=== PATIENT | female | born 1960 | race Caucasian/White ===

== ENCOUNTER 2018-12-01 15:01 | Inpatient (IN) | payer OTHER ==
[~2018-12-01] VITALS: Ht 157.5 cm; Wt 56.3 kg
[2018-12-01 15:14] VITALS: Ht 157.5 cm; Wt 56.3 kg
--- NOTE | 2018-12-01 15:18 | NUR ---
TO ROOM 11 FOR EVAL.
--- NOTE | 2018-12-01 15:22 | NUR ---
PT BIB FAMILY C/C ABD PAIN HX OVARIAN CA STS ON CHEMO LAST SESSION 11/25 STS LUMP ON ABD IS LARGER THEN USUAL AWAITING FOR DR OVIDIO FLORENTINO
--- NOTE | 2018-12-01 16:40 | NUR ---
DR PEACE AT BEDSIDE TO EVAL
[2018-12-01 17:22] LABS: ALBUMIN 3.6 g/dL (3.4-5.0); ALKALINE PHOSPHATASE 93 U/L (46-116); ALT/SGPT 25 U/L (14-59); AST/SGOT 16 U/L (15-37); BILIRUBIN TOTAL 0.55 mg/dL (0.20-1.00); CALCIUM 9.3 mg/dL (8.5-10.1); CARBON DIOXIDE 26.9 mmol/L (21-32); CHLORIDE SERUM 101 mmol/L (98-107); CREATININE SERUM 0.7 mg/dL (0.6-1.0); GFR1 > 60 mL/min; GLUCOSE SERUM 109 mg/dL (74-106); LIPASE 58 IU/L (73-393); POTASSIUM SERUM 3.8 mmol/L (3.5-5.1); SODIUM SERUM 138 mmol/L (136-145); TOTAL PROTEIN, SERUM 6.9 g/dL (6.4-8.2)
[2018-12-01 17:23] LABS: RED CELL DISTRIBUTION WIDTH 18.4 % (11.5-14.5); microscopic required? YES; urine erythrocyte NEGATIVE (NEGATIVE)
[2018-12-01 17:24] LABS: PLATELET COUNT 40 x10^3mcL (130-400)
[2018-12-01 17:37] LABS: BAND NEUTROPHIL 0 % (0-10); BASOPHIL 0 % (0-2); MONOCYTE 7 % (0-7); SEGMENTED NEUTROPHILS 56 % (37-75)
[2018-12-01 17:38] LABS: rbc morphology (normal/abnorm) ABNORMAL (NORMAL)
--- NOTE | 2018-12-01 17:48 | NUR ---
TAKEN TO RADIOLOGY FOR CT
[2018-12-01] MEDS ORDERED: LYNPARZA150 MG PO (17:50)
[2018-12-01] MEDS ORDERED: NEUPOGEN300 MCG/01 IJ (17:50)
[2018-12-01] MEDS ORDERED: ZOFRAN ODT8 MG PO (17:50)
[2018-12-01] MEDS ORDERED: PROCHLORPERAZIN10 MG PO (17:51)
--- NOTE | 2018-12-01 18:11 | NUR ---
BACK FROM CT
--- NOTE | 2018-12-01 18:48 | NUR ---
DR PEACE AT BEDSIDE TO GO OVER PLAN OF CARE
--- NOTE | 2018-12-01 19:54 | NUR ---
REPORT GIVEN TO JEREMI ON MST FOR CONTINUATION OF CARE.
[2018-12-01 20:24] VITALS: BP 167/84
--- NOTE | 2018-12-01 20:28 | NUR ---
RECEIVED PT FROM ED VIA ANDRIY. ORIENTED PT TO ROOM AND SURROUNDINGS. IV NOTED TO LAC PATENT AND INTACT. ISNTRUCTED PT ON THE USE OF CALL LIGHT FOR ASSISTANCE. ENDORSED PT TO PRIMARY NURSE JEREMI
--- NOTE | 2018-12-01 20:30 | NUR ---
PT IS LAYING IN BED. PT IS A/OX4. BREATHING IS E/U ON RA. NO S/S OF ACUTE DISTRESS NOTED. LAC IV IN PLACE WITH NO S/S OF INFILTRATION NOTED. FAMILY AT BEDSIDE. NEUTROPENIC PRECATIONS IN PLACE. BED IN LOW POSITION. CALL LIGHT IN REACH. WILL CONT TO MONITOR
[2018-12-01 20:35] LABS: MAGNESIUM 1.6 mg/dL (1.8-2.4); PHOSPHOROUS 4.1 mg/dL (2.5-4.9)
[2018-12-01 20:47] LABS: T3 TOTAL 0.93 ng/mL
[2018-12-01 20:55] LABS: AMPHETAMINE QUAL UR NONE DETECTED (See below)
--- NOTE | 2018-12-01 21:17 | NUR ---
PT C/O ACHING ABD PAIN. PT MEDICATED WITH MORPHINE PER EMAR. WILL CONT TO MONITOR
[2018-12-01 21:28] LABS: FREE T4 1.22 ng/dL (0.76-1.46); FREE THYROXINE INDEX 3.1 ug/dL (1.4-4.5); T4(THYROXINE) 8.7 ug/dL (4.7-13.3)
--- NOTE | 2018-12-01 22:31 | NUR ---
PT C/O OF GASTRIC REFLUX. PT MEDICATED WITH PROTONIX PER EMAR
--- NOTE | 2018-12-01 22:56 | NUR ---
PT C/O FEELING NAUSEAS. PT MEDICATED WITH ZOFRAN PER EMAR
--- NOTE | 2018-12-01 23:23 | NUR ---
14 FR RIGHT NARE NGT PLACED. AIR AUSCULTATED OVER EPIGASTRIC REGION. AWAITING KUB RESULTS TO VERIFY PLACEMENT. PT NOTED TO BE VOMITING BLOOD-TINGED COLORED EMESIS. DR. ESTRELLA AT BEDSIDE AND AWARE.
--- NOTE | 2018-12-01 23:23 | NUR ---
14 FR RIGHT NARE NGT PLACED. AIR AUSCULTATED OVER EPIGASTRIC REGION. AWAITING KUB RESULTS TO VERIFY PLACEMENT. PT NOTED TO BE VOMITING BROWNISH/DARK RED COLORED EMESIS. DR. ESTRELLA AT BEDSIDE AND AWARE.
--- NOTE | 2018-12-01 23:36 | NUR ---
X-RAY TECH AT BEDSIDE FOR VERIFICATION OF NGT PLACEMENT
--- NOTE | 2018-12-02 01:25 | NUR ---
NGT PLACED TO LIS PER MD ORDER. BROWN COLORED DRAINAGE NOTED FROM NGT
--- NOTE | 2018-12-02 03:05 | NUR ---
PT AMBULATED TO THE RESTROOM WITH A STEADY GAIT. PT HAD A SMALL BROWN BM
[2018-12-02 06:07] VITALS: BP 147/78
--- NOTE | 2018-12-02 06:20 | NUR ---
PT IS SLEEPING, EASILY AROUSABLE. BREATHING IS E/U ON RA. NO S/S OF ACUTE DITRESS NOTED. NGT CONNECTED TO LIS WITH BROWN COLORED DRAINAGE NOTED. LAC IV IN PLACE WITH NO S/S OF INFILTRATION NOTED, INFUSING NS @ 100 ML/HR. BED IN LOW POSITION. CALL LIGHT IN REACH.
[2018-12-02 07:02] LABS: CALCIUM 8.7 mg/dL (8.5-10.1); CHLORIDE SERUM 102 mmol/L (98-107); CREATININE SERUM 0.5 mg/dL (0.6-1.0); GFR1 > 60 mL/min; GLUCOSE SERUM 98 mg/dL (74-106); MAGNESIUM 1.4 mg/dL (1.8-2.4); PHOSPHOROUS 3.8 mg/dL (2.5-4.9); POTASSIUM SERUM 3.1 mmol/L (3.5-5.1); SODIUM SERUM 139 mmol/L (136-145)
--- NOTE | 2018-12-02 07:15 | NUR ---
REPORT GIVEN TO DAWNA PERSAUD. ALL QUESTIONS/CONCERNS ADDRESSED AT THIS TIME. ENDORSING ALL CARE
[2018-12-02 07:30] LABS: RED CELL DISTRIBUTION WIDTH 18.1 % (11.5-14.5)
--- NOTE | 2018-12-02 07:30 | NUR ---
PATIENT RESTING IN BED, NO ACUTE DISTRESS NOTED. PATIENT STATES HER PAIN LEVEL IS 06/10 TO ABDOMEN, BUT IS TOLERABLE. EDUCATED PATIENT ON PAIN MANAGEMENT. BOWEL SOUNDS ARE ACTIVE X4, DENIES N/V AT THIS TIME. NS IV INFUSING TO LAC AT 100ML/HR, IV SITE CDI & PATENT, NO S/S OF INFILTRATION. CALL LIGHT WITHIN REACH, BED IN LOW POSITION. WILL CONTINUE TO MONITOR FOR CHANGES.
[2018-12-02 07:31] LABS: PLATELET COUNT 35 x10^3mcL (130-400)
[2018-12-02 08:36] VITALS: BP 135/67
--- NOTE | 2018-12-02 10:37 | NUR ---
DR. AKHTAR AT BEDSIDE, SPOKE WITH PATIENT REGARDING PALLATIVE TRANSVERSE COLOSTOMY. PATIENT APPEARED HESITANT ABOUT PROCEDURE AND WILL NEED TIME TO THINK ABOUT IT. WILL FOLLOW UP WITH PATIENT.
--- NOTE | 2018-12-02 10:44 | NUR ---
DR JIMENEZ AWARE PATIENT K 3.1, MAG 1.4. DR JIMENEZ WILL PLACE IN NEW ORDERS, WILL FOLLOW UP. DR. JIMENEZ AWARE PATIENT DID NOT RECEIVE MAG OX PO, PATIENT IS ON NGT LIS, DR TOM WILL UPDATE MEDICATION. WILL CONTINUE TO MONITOR PATIENT.
[2018-12-02 11:29] LABS: BAND NEUTROPHIL 3 % (0-10); BASOPHIL 0 % (0-2); MONOCYTE 6 % (0-7); PLATELET MORPHOLOGY PLATELETS DECREASED; SEGMENTED NEUTROPHILS 46 % (37-75); rbc morphology (normal/abnorm) ABNORMAL (NORMAL)
--- NOTE | 2018-12-02 12:45 | NUR ---
RECEIVED NURSING ORDERS TO REMOVE NGT. 14 FR NGT TO RIGHT NARE REMOVED. PATIENT TOLERATED NGT REMOVAL. NO OUTPUT NOTED. CALL LIGHT WITHIN REACH, BED IN LOW POSITION, WILL CONTINUE TO MONITOR.
[2018-12-02 16:53] VITALS: BP 132/78
--- NOTE | 2018-12-02 18:50 | NUR ---
PATIENT RESTING IN BED, NO ACUTE DISTRESS NOTED. PATIENT DENIES PAIN. NO ACUTE CHANGES THROUGH OUT SHIFT. IV TO LAC CDI, NO S/S OF INFILTRATION. CALL LIGHT WITHIN REACH, BED IN LOW POSITION, WILL ENDORSE REPORT TO NIGHT NURSE.
--- NOTE | 2018-12-02 19:40 | NUR ---
RECEIVED REPORT FROM DAY SHIFT RN. PT RESTING IN BED. AA&O X4. NO SOB ON ROOM AIR. NO C/O PAIN AT THIS TIME. IV TO LAC, INTACT. SAFETY MEASURES IN PLACE. BED IN LOWEST POSITION. SIDE RAILS UP X2. DEMONSTRATED HOW TO USE THE CALL LIGHT FOR ASSISTANCE. CALL LIGHT WITHIN REACH. FAMILY AT BEDSIDE.
[2018-12-02 22:00] VITALS: BP 135/80
--- NOTE | 2018-12-03 00:05 | NUR ---
PT RESTING WITH EYES CLOSED. NO RESPIRATORY DISTRESS. NO FACIAL GRIMACING. CALL LIGHT WITHN REACH. DAUGHTER AT BEDSIDE.
--- NOTE | 2018-12-03 06:27 | NUR ---
PT SLEPT AT LONG INTERVALS DURING SHIFT. NO SOB ON ROOM AIR. NO N/V. NO C/O PAIN. NO ACUTE DISTRESS NOTED. PT REMAINED NPO. SAFETY MEASURES MAINTAINED. CALL LIGHT WITHIN REACH. DAUGHTER AT BEDSIDE. WILL ENDORSE CONTINUITY OF CARE TO DAY SHIFT RN.
[2018-12-03 06:54] VITALS: BP 149/88
[2018-12-03 07:30] LABS: CALCIUM 8.7 mg/dL (8.5-10.1); CARBON DIOXIDE 27.3 mmol/L (21-32); CHLORIDE SERUM 100 mmol/L (98-107); CREATININE SERUM 0.5 mg/dL (0.6-1.0); GFR1 > 60 mL/min; GLUCOSE SERUM 113 mg/dL (74-106); MAGNESIUM 1.7 mg/dL (1.8-2.4); PHOSPHOROUS 3.3 mg/dL (2.5-4.9); POTASSIUM SERUM 3.9 mmol/L (3.5-5.1); SODIUM SERUM 136 mmol/L (136-145)
[2018-12-03 07:36] LABS: PLATELET COUNT 35 x10^3mcL (130-400); RED CELL DISTRIBUTION WIDTH 18.4 % (11.5-14.5)
--- NOTE | 2018-12-03 07:40 | NUR ---
PATIENT IS RESTING IN BED, NO ACUTE DISTRESS NOTED. DENIES SOB, ON ROOM AIR. PATIENT C/O ABDOMINAL DISCOMFORT, BUT TOLERABLE. EDUCATED PATIENT ON PAIN MANAGEMENT. D5 1/2NS KCL 10MEQ INFUSING TO LAC AT 80ML/HR, IV SITE CDI & PATENT, NO S/S OF INFILTRATION. CALL LIGHT WITHIN REACH, BED IN LOW POSITION, WILL CONTINUE TO MONITOR.
[2018-12-03 08:40] VITALS: BP 138/71
--- NOTE | 2018-12-03 09:40 | NUR ---
DR JIMENEZ AWARE PATIENT WBC 2.7, PLT 35, MAG 1.7. NO FURTHER ORDERS AT THIS TIME, WILL CONTINUE TO MONITOR PATIENT.
--- NOTE | 2018-12-03 10:10 | NUR ---
DR. AKHTAR AT BEDSIDE, SPOKE TO PATIENT AND DAUGHTER REGARDING SURGICAL PROCEDURE. PATIENT AND DAUGHTER VERBALIZE UNDERSTANDING OF PROCEDURE, ALL QUESTIONS AND CONCERNS ADDRESSED BY DR. AKHTAR.
[2018-12-03 10:51] LABS: BAND NEUTROPHIL 5 % (0-10); BASOPHIL 0 % (0-2); MONOCYTE 11 % (0-7); SEGMENTED NEUTROPHILS 47 % (37-75)
[2018-12-03 10:53] LABS: PLATELET MORPHOLOGY PLATELETS DECREASED; acanthocyte (spur cell) 1+; rbc morphology (normal/abnorm) ABNORMAL (NORMAL); tear drop cell (dacryocyte) 1+
--- NOTE | 2018-12-03 11:26 | NUR ---
PATIENT WAS TAKEN DOWN TO OR VIA GURNEY. IV TO LAC, SALINE LOCK. CONSENT FORM SIGNED. WILL FOLLOW UP WITH OR.
--- NOTE | 2018-12-03 12:30 | NUR ---
PATIENT ARRIVED FROM OR VIA GURNEY.
--- NOTE | 2018-12-03 14:15 | NUR ---
PATIENT WAS C/O PAIN TO ABDOMEN 12/02, OFFERRED PATIENT MORPHINE AND EXPLAINED THE SIDE EFFETS. PATIENT STATED SHE DIDNT WANT IT DUE TO POSSIBLE NAUSEA, OFFERED PATIENT ZOFRAN PRIOR TO MORPHINE AND PATIENT STILL REFUSED. PATIENT STATED SHE WAS OKAY FOR NOW. WILL CONTIUE TO MONITOR PATIENT.
--- NOTE | 2018-12-03 15:56 | NUR ---
PATIENT WAS C/O OF ABDOMINAL DISCOMFORT 12/02, DR. JIMENEZ ORDERED TORDAL DUE TO PATIENT REFUSING MORPHINE. DR. JIMENEZ HAD TO DISCONTINUE TORDOL BECAUSE IT WAS A CONTRAINDICATION. NOTIFIED PATIENT, PATIENT WAS WILLING TO TRY MORPNINE. THEN RECEIVED CALL FROM LAB THAT BLOOD PRODUCT WAS AVAILABLE, NOTIFIED PATIENT THAT IT WAS READY. PATIENT STATED SHE DIDN'T WANT THE MORPHINE AND JUST WANTED TO GO DOWN INSTEAD. WENT DOWN TO OR WITH HUNG ZAMUDIO AND PATIENT TO RECEIVE CONSENT FORM FOR BLOOD PRODUCT, WENT TO LAB TO MUSEUM EDUCATOR PLATELETS AND TOOK THEM OVER TO OR, PLATELETS WERE HANDED TO HUNG ZAMUDIO.
[2018-12-03 18:28] VITALS: BP 156/78
--- NOTE | 2018-12-03 18:28 | NUR ---
1800: RECEIVED REPORT FROM HUNG ZAMUDIO, TRANSVERSE COLOSTOMY WAS PLACED. EBL WAS 15ML, PATIENT RECEIVED 2300ML OF LR. CHAVEZ CATH WAS INSERTED IN OR, 500ML OUTPUT NOTED. PLATELETS ADMINISTERED X2 IN OR. 182: PATIENT ARRIVED UP ON THE FLOOR VIA GURNEY. VITAL SIGNS STABLE BP 156/78 HR 82 O2 96% RR 16 TEMP 97.8 PAIN: 09/02, PATIENT STATES PAIN IS TOLERABLE. CALL LIGHT WITHIN REACH, BED IN LOW POSITION, FAMILY AT BEDSIDE. WILL ENDORSE REPORT TO NIGHT NURSE.
--- NOTE | 2018-12-03 18:40 | NUR ---
DR HAIR PLACED ORDER FOR NGT TO INTERMITTENT SUCTION, NO NGT PRESENT AT THIS TIME. CALLED OR TO CLARIFY ORDER, SPOKE WITH HUNG ZAMUDIO, ROBB STATED NGT WAS PLACED DURING PROCEDURED BUT WAS REMOVED DURING OR, NO NGT NEEDED AT THIS TIME.
--- NOTE | 2018-12-03 19:20 | NUR ---
ENDORSED REPORT TO NIGHT RN.
--- NOTE | 2018-12-03 19:20 | NUR ---
REPORT RECEIVED FROM DAY SHIFT RN. PATIENT WAS SEEN AND IS RESTING COMFORTABLY IN BED WITH FAMILY AND FRIENDS AT BEDSIDE. NEUTROPENIC PRECAUTIONS IN PLACE. NO DISTRESS NOTED. BREATHING EVEN AND UNLABORED ON ROOM AIR. NO SOB OR RESP DISTRESS NOTED. DENIES CHEST PAIN. C/O 7/10 ABD PAIN. WILL ADMINISTERED PRN MORPHINE. IV TO THE LAC, 20G, INFUSING WELL. IV TO THE LEFT HAND, 18G, AND RIGHT HAND, 18G, SALINE LOCK. ALL IVS PATENT AND INTACT. NO REDNESS OR SWELLING NOTED. TRANVERSE COLOSTOMY NOTED WITH LIQUID BROWN OUTPUT. DENIES N/V. COMFORT AND SAFETY MEASURES IN PLACE. BED IS LOCKED AND IN THE LOWEST POSITION. CALL LIGHT IS WITHIN REACH. WILL CONTINUE TO MONITOR.
--- NOTE | 2018-12-03 20:08 | NUR ---
C/O 12/02 ABD PAIN S/P TRANVERSE COLOSTOMY PROCEDURE. PRN MORPEHINE WAS ADMINISTERED PRESCRIBED. EDUCATED PATIENT AND FAMILY ON POSSIBLE COMMON SIDE EFFECTS SUCH N/V AND DROWSINESS. BOTH VERBALIZED UNDERSTANDING. CALL LIGHT IS WITHIN REACH. NO DISTRESS NOTED. BREATHING EVEN AND UNLABORED. WILL CONTINUE TO MONITOR AND REASSESS PAIN LEVEL.
--- NOTE | 2018-12-03 21:50 | NUR ---
PATIENT'S DAUGHTER CALLED AND REPORTED THAT COLOSTOMY BAG OPENED UP AND LEAKED EVERYWHERE. PATIENT WAS CLEANED AND LINENS CHANGED. PER DAUGHTER'S REQUEST, NEW COLOSTOMY BAG WAS PLACED. EDUCATED DAUGHTER AND PATIENT THAT STOMA SHOULD BE BEEFY RED OR PINK. ALSO EDUCATED THAT COLOSTOMY BAG SHOULD BE EMPTIED AROUND 1/3 FULL. PATIENT AND AUGHTER VERBALIZED UNDERSTANDING. AROUND 300ML OUT FROM COLOSTOMY OF LIQUID BROWN STOOL. NO C/O PAIN. NO DISTRESS NOTED. WILL CONTINUE TO MONITOR. CALL LIGHT IS WITHIN REACH.
--- NOTE | 2018-12-03 22:52 | NUR ---
PATIENT IS REQUESTING ICE CHIPS BUT IS NPO. PER DR COTTRELL, PATIENT CAN HAVE SOME ICE CHIPS.
--- NOTE | 2018-12-04 00:41 | NUR ---
SPOKE WITH DR COTTRELL FOR A WOUND CARE CONSULT FOR THE PATIENT'S NEW COLOSTOMY. HE SAID HE WILL PUT IN ORDERS.
--- NOTE | 2018-12-04 02:58 | NUR ---
C/O 12/02 ABD PAIN. GAVE PRN MORPHINE PRESCRIBED. (SEE EMAR). PATIENT IS AWARE OF POSS SIDE EFFECTS. PATIENT ALSO HAS A TEMP OF 101.4. PATIENT IS NPO AT THIS TIME. PAGED DR COTTRELL IF TYLENOL PO IS OKAY TO GIVE. WAITING PEDICURIST BACK. WILL IMPLEMENT COOLING MEASURES AT THIS TIME. ICE PACKS PLACED ON BILATERALLY AXILLA AND FOREHEAD & REMOVED SOME BLANKETS. WILL CONTINUE TO MONITOR AND REASSESS TEMP WHILE AWAITING DR COTTRELL'S CALL BACK.
--- NOTE | 2018-12-04 03:45 | NUR ---
AFTER COOLING MEASURES TEMP IS 100.4. DR PETER MADE AWARE AND SAID IT IS OKAY TO GIVE PRN TYLENOL PO. ADMINISTERED TYLENOL PRESCRIBED FOR TEMP. WILL CONTINUE TO MONITOR. NO DISTRESS NOTED. CALL LIGHT IS WITHIN REACH.
--- NOTE | 2018-12-04 06:10 | NUR ---
DR AKHTAR CALLED. UPDATED HIM ON THE COLOSTOMY OUTPUT.
--- NOTE | 2018-12-04 06:17 | NUR ---
PATIENT SLEPT IN INTERVALS THROUGHOUT THE NIGHT. NO ACUTE CHANGES NOTED. BREATHING EVEN ON ROOM AIR. NO SOB OR RESP DISTRESS NOTED. C/O PAIN X2 MEDICATED WITH PRN MORPHINE WITH GOOD RELIEF. DENIES CHEST PAIN. TRANSVERSE COLOSTOMY WITH 300ML BROWN LIQUID OUTPUT. STOMA IS PINK AND INTACT. IV TO THE LAC, RH, AND LH. ALL IV PATENT AND INTACT. NO REDNESS OR SWELLING NOTED. CHAVEZ CATH IN PLACE DRAINING YELLOW URINE BY GRAVITY. 950ML OUTPUT NOTED. NEUTROPENIC PRECAUTIONS IN PLACE. DAUGHTER AT BEDSIDE. SAFETY MEASURES IN PLACE. CALL LIGHT IS WITHIN REACH. WILL ENDORSE CARE TO DAY SHIFT RN.
[2018-12-04 06:27] VITALS: BP 95/56
[2018-12-04 06:32] LABS: CALCIUM 8.7 mg/dL (8.5-10.1); CARBON DIOXIDE 27.2 mmol/L (21-32); CHLORIDE SERUM 96 mmol/L (98-107); CREATININE SERUM 0.7 mg/dL (0.6-1.0); GFR1 > 60 mL/min; GLUCOSE SERUM 107 mg/dL (74-106); MAGNESIUM 1.5 mg/dL (1.8-2.4); PHOSPHOROUS 2.8 mg/dL (2.5-4.9); POTASSIUM SERUM 3.6 mmol/L (3.5-5.1); SODIUM SERUM 131 mmol/L (136-145)
--- NOTE | 2018-12-04 07:30 | NUR ---
PT IS AAOX4. NSR WITH S1S2 NOTED. RESP EVEN AND UNLABORED. PT ON R/A. LUNG SOUNDS CTA. ABODOMEN SOFT, DISTENDED, TENDER. BOWEL SOUNDS ACTIVE X4 QUADS. PT NPO AT THIS TIME. PT S/P TRANSVERSE COLOSTOMY PLACEMENT TO R MID ABDOMEN. STOMA IS SHINY, BEEFY RED, PROLAPSED, ROUND WITH PRODUCTION OF FORMED STOOL AT THIS TIME. COVERED WITH OSTOMY BAG FLUSH WITH SKIN. CHAVEZ CATH IN PLACE DRAINING CLEAR YELLOW URINE TO GRAVITY. NO SEDIMENT OR BLOOD NOTED. PERIPHERAL PULSES PALPABLE. NO PERIPHERAL EDEMA NOTED. IVF RUNNING TO [facility], SITE WNL. IV CATH NS LOCKED TO LH AND RH. BOTH SITES WNL. PT DENIES PAIN AND DISCOMFORT AT THIS TIME. CALL LIGHT WITHIN REACH. NEUTROPENIC PRECAUTIONS MAINTAINTED. FALL PROTOCOL MAINTAINED. BED IN LOWEST POSITION.
[2018-12-04 08:13] VITALS: BP 92/48
--- NOTE | 2018-12-04 08:37 | NUR ---
PAGED DR. JIMENEZ TO REPORT PT'S VS: 98.2F, HR 105, 16, BP 92/48 (62). AWAITING CALL BACK.
[2018-12-04 08:39] LABS: RED CELL DISTRIBUTION WIDTH 17.7 % (11.5-14.5)
--- NOTE | 2018-12-04 08:49 | NUR ---
PAGED DR. JIMENEZ TO REPORT PT CRITICAL WBC = 1.1. AWAITING CALL BACK.
--- NOTE | 2018-12-04 08:59 | NUR ---
REPORTED TO DR. JIMENEZ THAT THE PT'S WBC IS 1.1 AND PT'S VS: 98.2, 105, 16, 92/48 (62), 94% ON R/A. NO NEW ORDERS AT THIS TIME. .
[2018-12-04 11:42] LABS: BAND NEUTROPHIL 7 % (0-10); BASOPHIL 0 % (0-2); MONOCYTE 10 % (0-7); SEGMENTED NEUTROPHILS 43 % (37-75)
[2018-12-04 11:43] LABS: PLATELET MORPHOLOGY PLATELETS DECREASED; rbc morphology (normal/abnorm) ABNORMAL (NORMAL)
[2018-12-04 11:46] LABS: acanthocyte (spur cell) 1+
--- NOTE | 2018-12-04 11:47 | NUR ---
REPORTED TO DR. JIMENEZ THAT S/P 1000ML N/S FLUID BOLUS THAT PT'S B/P IS 86/14 (58), HR 108. NO NEW ORDERS AT THIS TIME. CHANGED PT'S STOMA BAG, DIAMETER TO CUT STOMA OPENING NOTED AT 75MM. COLOSTOMY BAG REMOVED, AREA CLEANSED WITH N/S AND PATTED DRY, SKIN PREP APPLIED. NEW COLOSTOMY BAG APPLIED. PT TAUGHT STOMA CARE AND BAG PLACEMENT DURING PROCESS. PT VERBALIZED UNDERSTANDING. PT TOLERATED PROCEDURE WELL. DENIES PAIN AT THIS TIME. CALL LIGTH WITHIN REACH. DAUGHTER AT BEDSIDE. NEUTROPENIC PRECAUTIONS MAINTAINED.
[2018-12-04 11:54] LABS: PLATELET COUNT 136 x10^3mcL (130-400)
[2018-12-04 11:55] VITALS: BP 86/45
[2018-12-04 12:51] VITALS: BP 95/54
--- NOTE | 2018-12-04 12:52 | NUR ---
PT S/P FLUID BOLUS X 1 HOUR. VS: 98.3, 109, 16, 95/54 (65), 94% ON R/A. RESP EVEN AND UNLABORED. NO DISTRESS NOTED. PT IS SITTING UP IN BED EATING LUNCH. DENIES FEELING OF SYNCOPE OR DIZZINESS. PT EDUCATED TO CALL FOR ASSISTANCE WHEN ATTEMPTING TO GET UP OUT OF BED. PT VERBALIZED UNDERSTANDING. DAUGHTER AT BEDSIDE. CALL LIGHT WITHIN REACH. NEUTROPENIC PRECAUTIONS MAINTAINED.
--- NOTE | 2018-12-04 14:12 | NUR ---
DR. BROWN REMOVED 6 SUTURES FROM PT'S COLOSTOMY. HAN WOUND CARE NURSE ASSESSED PT AND APPLIED NEW COLOSOTOMY APPLIANCE. WOUND CARE ORDERS WILL FOLLOW. PT TOLERATED PROCEDURE WELL. RESP EVEN AND UNLABORED. NO DISTRESS NOTED. DENIES PAIN AT THIS TIME. CALL LIGHT WITHIN REACH. NEUTROPENIC PRECAUTIONS MAINTAINED. BED IN LOWEST POSITION.
--- NOTE | 2018-12-04 15:34 | NUR ---
WOUND CARE EVALUATION NOTE: REASON FOR EVALUATION: COLOSTOMY CARE COLOSTOMY ASSESSMENT DONE WITH PRIMARY NURSE ON THIS 58 Y/O FEMALE FROM HOME TO [facility], WITH INITIAL DIAGNOSIS OF ABD. [id number]. PAST MEDICAL HISTORY INCLUDE OVARIAN CANCERS METASTASIS.HAS BEEN ON CHEMOTHERAPY X10 YRS ALL ABOVE INFORMATION WAS OBTAINED FROM THE ADMISSION H&P. AND PT. PT IS AAX4, SPEAK LITTLE [place], POC AND COLOSTOMY CARE REFERENCES PROVIDES TO PT IN [place] WITH CHARGE NURSE ARRON. ALL QUESTION ANSWERED. -RLQ ABDOMINAL COLOSTOMY WITH [address] AND SECURED,STOMA BEEFY RED AND SWELLING, SMALL AMOUNT OF CLEAR MUCUS DRAINAGE OBSERVE,OVER ALL SWELLING TISSUE [id number] OVAL SHAPE WITH 3.5 CM TALL, STOMA IS 2 1/2 INCHES IN DIAMETER, JACQUELINE STOMA SKIN DRY AND INTACT. MAY HAVE TO CUT THE WAFER SIZE BIGGER TO ACCOMADATE THE SWELLING TISSUE RECOMMENDATIONS: -REMEASURE STOMA SIZE IN 7-10 DAYS WHEN SWELLING DECREASE -HOME HEALTH TO FOLLOW UPON DISCHARGED -FOLLOW UP WITH SURGEON IN 7-10 DAYS UPON DISCHARGE -OSTOMY CARE PER PROTOCOL AND DURING OSTOMY CARE PLEASE FOLLOW INSTRUCTION BELOW: -CHECK JACQUELINE STOMA SKIN CONDITION EVERY TIME WAFER CHANGED Q 5 DAYS AND PRN IF DISPLACED -CLEANSE STOMA AND JACQUELINE STOMA SKIN WITH SOAP AND WATER, PAT DRY -APPLY SKIN PREP TO JACQUELINE-OSTOMY SKIN -APPLY STOMA ADHESIVE PAST/EKAIN RING, NEAR THE EDGE OF STOMA SKIN AREA, PAT FLAT. APPLY SKIN PREP TO JACQUELINE-STOMA SKIN -USE 2- PIECES FREDRICK OSTOMY DEVICES WITH 3" (76MM), CUT TO FIT THE STOMA EXACTLY. NO SKIN SHOWING. APPLY PRE-CUT WAFER TO OSTOMY AND ATTACHED POUCH TO WAFER. CHANGE WAFER Q5 DAYS. -EMPTY AND RINSE POUCH WHEN IT IS 1/3 FULL. CHANGE POUCH Q5 DAYS AND PRN IF LEAK -MAY DISCHARGE HOME WITH SULLPIES FOLLOWIN COMPLETE POUCH CHANGES 1 TUBE OF STOMA ADHESIVE PASTE 1 BOTTLE OF STOMA ADHESIVE POWDER 4 SKIN PREP ABOVE INSTRUCTION EXPLAINED AND DEMONSTRATED TO PT. PT. VERBALIES UNDERSTANDING. PRIMARY RN CONTINUE TEACHING COLOSTOMY CARE.
--- NOTE | 2018-12-04 15:56 | NUR ---
TYLENOL 650MG PO GIVEN FOR 102.2F TEMPERATURE. COOLING MEASURES IN PLACE. FLUIDS ENCOURAGED. WILL CONTINUE TO MONITOR.
[2018-12-04 16:03] VITALS: BP 99/54
--- NOTE | 2018-12-04 16:45 | NUR ---
NORCO 10/325MG PO GIVEN FOR THROBBING ABDOMINAL PAIN 12/02. FLUIDS ENCOURAGED. RESP EVEN AND UNLABORED. NO RESP DISTRESS NOTED. BLADDER SCAN PERFORMED, 30ML RESIDUAL URINE NOTED. DR. JIMENEZ MADE AWARE. CALL LIGHT WITHIN REACH. BED IN LOW POSITION. PT'S FAMILY EDUCATED ABOUT NEUTROPENIC PRECAUTIONS. FAMILY INITIALLY DID NOT WANT GRANDDAUGHTER TO WEAR MASK AND GOWN. PT DAUGHTER VERBALIZED UNDERSTANDING. NEUTROPENIC PRECAUTIONS MANTAINED.
--- NOTE | 2018-12-04 17:09 | NUR ---
PT TEMPERATURE AT 101.1F. COOLING MEASURES IN PLACE. PT DRINKING FLUIDS AT THIS TIME. CALL LIGHT WITHIN REACH.
--- NOTE | 2018-12-04 18:52 | NUR ---
PT TEMPERATURE 99.1F. PT IS AAOX4. RESP EVEN AND UNLABORED. TELE [address] READ[address] NSR. CHAVEZ CATH IN PLACE DRAINING DARK YELLOW URINE WITH 250ML FOR SHIFT. DR. JIMENEZ IS AWARE. PT EDUCATED TO INCREASE FLUIDS TO HELP HYDRATE HERSELF. PT VERBALIZED UNDERSTANDING. IVF RUNNING TO , SITE WNL. NO S/S OF INFECTION OR INFILTRATION. IV CATH N/S LOCKED TO , SITE WNL, NO INFECTION NOTED, PATENT. IV CATH N/S LOCKED TO LAC, PATENT, SITE WNL. NO INFECTION NOTED. PT DENIES PAIN AND DISCOMFORT AT THIS TIME. ALL CARE WILL BE ENDORSED TO NOC SHIFT RN. NEURTROPENIC PRECAUTIONS MAINTAINED THROUGH OUT DAY. CALL LIGHT WITHIN REACH.
[2018-12-04 19:50] VITALS: BP 106/56
--- NOTE | 2018-12-04 19:50 | NUR ---
RECEIVED REPORT FROM AM NURSE. PT IN BED WITH FAMILY AT BEDSIDE. PT AAOX4, SWISS SPEAKING, ABLE TO MAKE NEEDS KNOWN. MED SURGE PT, DENIES CP/PRESSURE AT THIS TIME. PALPABLE PULSESE TO ALL EXTREMETIES. NO EDEMA NOTED. LUNGS SOUNDS CTA ON RA. BREATHING SHALLOW AND UNLABORED, NO SIGNS OF RESP DISTRESS NOTED. ABD SOFT AND ROUND. COLOSTOMY TO RIGHT SIDE OF ABD, STOMA BEAFY READ IN COLOR. LIQUID BROWN COLOR STOOL NOTED IN BAG. DENIES N/V. CHAVEZ CATH IN PLACE, DRAINING DARK YELLOW URINE TO GRAVITY. GENERALIZED WEAKNESS, ABULATORY WITH ASSIST. IV TO LAC, LH AND RH PATENT AND INTACT. SITES FREE FROM REDNESS AND SWELLING. NO ACUTE DISTRESS NOTED. BED AT LOWEST SETTING, SIDE RAILS X2 UP, CALL LIGHT WITHING REACH. WILL CONTINUE TO MONITOR.
--- NOTE | 2018-12-04 23:09 | NUR ---
CALLED DR RAMIREZ REGARDING PT H/H OF 7.8/22 AND WBC 1.1. NO ORDERS RECEIVED AT THIS TIME.
[2018-12-05] VITALS (7 sets, daily range): BP systolic 91–118; BP diastolic 53–60
--- NOTE | 2018-12-05 06:20 | NUR ---
PT SLEPT AT INTERVALS THROUGHOUT THE NIGHT. BREAHING EVEN AND UNLABORED, NO SIGNS OF RESP DISTRESS NOTED. HAIR CARE DONE. CHAVEZ CATH CARE DONE. ALL NEEDS ASSESSED AND ATTENDED TO. BED AT LOWEST SETTING, SIDE RAILS X2 UP, CALL LIGHT WITHING REACH. WILL ENDORSE CARE TO AM NURSE.
[2018-12-05 06:47] LABS: CALCIUM 8.1 mg/dL (8.5-10.1); CHLORIDE SERUM 96 mmol/L (98-107); CREATININE SERUM 0.9 mg/dL (0.6-1.0); GFR1 > 60 mL/min; GLUCOSE SERUM 100 mg/dL (74-106); MAGNESIUM 1.5 mg/dL (1.8-2.4); SODIUM SERUM 130 mmol/L (136-145)
--- NOTE | 2018-12-05 07:31 | NUR ---
RECEIVED HAND OFF REPORT FROM HARIKA PERSAUD, FOUND PATIENT LAYING SUPINE AWAKE AND ALERT. IV'S TO RIGHT HAND [SALINE LOCKED], LEFT HAND [MAINTANCE FLUIDS FLOWING], AND LEFT AC [SALINE LOCKED]. COLOSTOMY PRESENT TO UPPER RIGHT QUAD, CHAVEZ CATH PRESENT, FLOWING WELL. PATINET COMPLAINING OF FEELING COLD CUSTOMS INVESTIGATOR TO CHECK VITAL SIGNS. REORITENTED PATIENT TO CALL LIGHT SYSTEM, CALL LIGHT WITHIN REACH
[2018-12-05 07:34] LABS: PLATELET COUNT 113 x10^3mcL (130-400); RED CELL DISTRIBUTION WIDTH 18.3 % (11.5-14.5)
--- NOTE | 2018-12-05 08:33 | NUR ---
PATIENT TEMP 100.6 TYLENOL PRN ADMINSITERED. PATIENT REFUSED COLD COMPRESS BUT ROOM TEMP TURNED DOWN AND BLANKET REMOVED FROM PATIENT. EMPTIED PATIENT COLOSTOMY BAG PATIENT REQUESTING NEW BAG BUT CURRENT BAG HAS BEEN IN PLACE FOR <1DAY. NR DESIRE VISITED PATIENT. PATIENT EATING BREAKFAST TRAY. CALL LIGHT WIHTIN REACH
--- NOTE | 2018-12-05 09:57 | NUR ---
REASSESSED PATIENT TEMP, 98.7 TEMOPORALY. PATIENT STATES SHE HAS SLIGHT PAIN TO ABD BUT REFUSED MEDICATION. CALL LIGHT WITHIN REACH WILL CONTINUE TO MONITOR
--- NOTE | 2018-12-05 12:01 | NUR ---
PATIENT VISUALIZED RESTING AT THIS TIME, CALL LIGHT WITHIN REACH
--- NOTE | 2018-12-05 13:01 | NUR ---
PATINET DAUGHTER AT BEDSIDE NOW, PATINT COMPLAING OF PAIN TO ABD WITH CRAMPING, REQUESTED NORCO. ADMINISTERED NORCO PER MAR, PATIENT REQUESTED TO HAVE FLOOR CLEANED. REMOVED CHAVEZ CATH PER ORDER. TIP INTACT. INSTRUCTED PATIENT TO UDE CALL LIGHT WHEN NEEDING TO USE RESTORROM FOR HELP TO AMBULATE. PATIENT VERBALIZED UNDERSTANDING. CALL LIGHT WITHIN REACH, BED IN LOWEST POSITION. WILL CONTINUE TO MONITOR
[2018-12-05 13:38] LABS: BAND NEUTROPHIL 15 % (0-10); SEGMENTED NEUTROPHILS 25 % (37-75)
[2018-12-05 13:39] LABS: MONOCYTE 14 % (0-7); acanthocyte (spur cell) 1+; rbc morphology (normal/abnorm) ABNORMAL (NORMAL)
[2018-12-05 13:40] LABS: PLATELET MORPHOLOGY PLATELETS DECREASED
--- NOTE | 2018-12-05 15:31 | NUR ---
PATIENT SLEEPING AT THIS TIME WITH FAMILY MEMBERS AT BEDSIDE. CALL [facility] WITHIN REACH
--- NOTE | 2018-12-05 16:00 | NUR ---
PATIENT ARRIVED VIA GUERNEY FROM ER ACCOMPANIED BY RN AND EMT. PATIENT AMBULATED TO BED WITH NO ASSISTNACE, PAIN STEADY. A/O X4 DENIES PAIN. 20G IV TO RIGHT FOREARM. ORIETED TO ROOM AND CALL LIGHT SYSTEM. CALL LIGHT WITHIN REACH.
--- NOTE | 2018-12-05 17:55 | NUR ---
PLATELETS STARTED. VS STABE AT START OF ADMINISTRATION. WILL REMAIN IN ROOM WITH PATIENT FOR 15 MINUTES.
--- NOTE | 2018-12-05 18:19 | NUR ---
AFTER 15 MINUTES, NO ADVERSE CHANGE IN PATIENT. VS STABLE. RATE INCREASED. FAMILY AT BEDSIDE. ADVISED OF ADVERSE REACTIONS. CALL LIGHT WITHIN REACH
--- NOTE | 2018-12-05 19:07 | NUR ---
FINISHED PLATELET TRANSFUSION, VSS. PATIENT COMPLAINING OF ABD CRAMPING WORSENING DURING THE DAY, NORCO GIVEN. PATIENT STABLE WILL ENDORSE TO NIGHT NURSE
--- NOTE | 2018-12-05 20:00 | NUR ---
RECIEVED PT FROM [facility] ZENDEJAS. PT IS A/0 X4. PT IS MED SURG, DENIES ANY CHEST PAIN OR SOB AT THIS TIME. PT PULSES ARE PALPABLE. NO EDEMA NOTED. PT HAS CLEAR LUNG SOUNDS BILARERLALY. PT BREATHE SOUNDS ARE EVEN AND UNLABORED. PT HAS ACTIVE BOWEL SOUNDS, LAST BM 12/05. PT HAS MID RIGHT ABD TRANSVERSE COLOSTOMY, STOMA IS BEEFY RED, NO ERYTHMA NOTED, OUTPUT IS LOOSE STOOL, BROWN IN COLOR, NO LEAKAGE NOTED. PT ABLE TO VOID. PT HAS GENERAL WEAKNESS, AMBULATES WITH ASSIST. PT OSTOMY IS CDI. PT DENIES ANY PAIN AT THIS TIME. PT IV TO LAC, LH,RH CDI. PT HAS CALL LIGHT WITHIN REACH, WILL CONT TO MONITOR.
--- NOTE | 2018-12-06 00:35 | NUR ---
PT IN BED AWAKE. PT DENEIS ANY PAIN AT THIS TIME. NO RESP DISTRESS NOTED. PT BREATHING IS EVEN AND UNLABORED. PT RESPONDS TO VERBAL COMMANDS. NO ACUTE CHANGES AT THIS TIME. WILL CONT TO MONITOR, CALL LIGHT WITHIN REACH.
[2018-12-06 05:50] VITALS: BP 108/55
--- NOTE | 2018-12-06 06:46 | NUR ---
PT SLEPT THROUGH THE NIGHT. PT DENIES ANY CHEST PAIN OR SOB AT THIS TIME. NO RESP DISTRESS NOTED. PT COLOSTOMY CDI, NO LEAKAGE PRESENT. STOMA IS BEEFY RED, OUTPUT IS 400 ML,LOOSE, COLOR IS BROWN. PT DENIES ANY PAIN AT THIS TIME. PT IS AMBULATORY WITH ASSIST. PT IV TO LAC, LH, RH CDI. NO ACUTE CHANGES THROUGH OUT THE NIGHT. PT WAS COOPERATIVE WITH NURSING CARE. WILL ENDORSE CARE TO DAY SHIFT NURSE.
[2018-12-06 07:01] LABS: CARBON DIOXIDE 27.5 mmol/L (21-32); CHLORIDE SERUM 98 mmol/L (98-107); CREATININE SERUM 0.7 mg/dL (0.6-1.0); GFR1 > 60 mL/min; GLUCOSE SERUM 117 mg/dL (74-106); POTASSIUM SERUM 3.1 mmol/L (3.5-5.1); SODIUM SERUM 134 mmol/L (136-145)
--- NOTE | 2018-12-06 07:05 | NUR ---
RECEIVED PT FROM RN CORONARY CARE UNIT NURSE. PT IN BED SLEEPING, AROUSABLE, RESP E/U ON RA. NO SIGNS OF ACUTE DISTRESS NOTED. SALINE LOCK TO LH AND RH W/ NO ERYTHEMA OR EDEMA, RECEIVING IVF TO LAC W/ NO SIGNS OF INFILTRATION, IVF INFUSING WELL. BED COLOSTOMY TO RLQ CDI W/ NO OUTPUT AT THIS TIME. BED IN LOWEST POSITION AND CALL LIGHT WITHIN REACH. WILL CONTINUE TO MONITOR.
[2018-12-06 07:08] LABS: BASOPHIL % 0.4 % (0-2); PLATELET COUNT 133 x10^3mcL (130-400)
[2018-12-06 07:55] VITALS: BP 108/56
[2018-12-06 08:59] LABS: RED CELL DISTRIBUTION WIDTH 18.5 % (11.5-14.5)
--- NOTE | 2018-12-06 09:00 | NUR ---
RECEIVED CALL FROM LAB FOR HGB: 6.8, HCT: 20. RONEY CHADWICK MADE AWARE. NO NEW ORDERS AT THIS TIME.
[2018-12-06 11:13] LABS: PLATELET COUNT 135 x10^3mcL (130-400)
--- NOTE | 2018-12-06 12:35 | NUR ---
IV TO LAC INFILTRATED. IV CATH REMOVED, INTACT, GAUZE APPLIED TO SITE. IV INSERTED TO RFA PATENT AND INTACT. VS TAKEN FOLLOWS: T: 98.0, HR: 117/66, RR: 18, O2: 93%. BLOOD TRANSFUSION STARTED AT 60 ML/HR INFUSING WELL. WILL CONTINUE TO MONITOR.
--- NOTE | 2018-12-06 12:50 | NUR ---
VS FOR BLOOD TRANSFUSION REASSESSED FOLLOWS : T: 97.9, HR: 84, BP: 117/71, RR: 18, O2: 97%. NO SIGNS OF ADVERSE REACTION NOTED. COLOSTOMY BAG CHANGED AT THIS TIME, MINIMAL LOOSE BROWN OUTPUT NOTED, STOMA RED, NO ERYHTEMA AROUND STOMA SITE. WILL CONTINUE TO MONITOR.
--- NOTE | 2018-12-06 13:59 | NUR ---
RONEY CHADWICK AT BEDSIDE AND DISCUSSING THE POC WITH PT AND PT'S DAUGHTER.
--- NOTE | 2018-12-06 15:45 | NUR ---
BLOOD TRANSFUSION COMPLETED AT THIS TIME, 500 ML INFUSED. VS CHECKED FOLLOWS: T: 98.6, HR: 90, BP: 127/67, RR: 18, O2: 96%. NO SIGNS OF ADVERSE REACTIONS. WILL CONTINUE TO MONITOR.
[2018-12-06 15:58] VITALS: BP 117/56
[2018-12-06 18:02] LABS: BAND NEUTROPHIL 28 % (0-10); MONOCYTE 12 % (0-7); SEGMENTED NEUTROPHILS 39 % (37-75)
[2018-12-06 18:03] LABS: acanthocyte (spur cell) 1+; rbc morphology (normal/abnorm) ABNORMAL (NORMAL); schistocyte (helmet cell) 1+
[2018-12-06 18:04] LABS: PLATELET MORPHOLOGY PLATELETS DECREASED
[2018-12-06 18:05] LABS: rbc morphology (normal/abnorm) ABNORMAL (NORMAL)
[2018-12-06 18:06] LABS: acanthocyte (spur cell) 1+; schistocyte (helmet cell) 1+
--- NOTE | 2018-12-06 20:00 | NUR ---
RECIEVED PT FROM HUNG ZENDEJAS. PT IS A/0 X4. PT IS MED SURG, DENIES ANY CHEST PAIN OR SOB AT THIS TIME. PT PULSES ARE PALPABLE. NO EDEMA NOTED. PT HAS CLEAR LUNG SOUNDS BILARERLALY. PT BREATHE SOUNDS ARE EVEN AND UNLABORED. PT HAS ACTIVE BOWEL SOUNDS, LAST BM 12/06. PT HAS MID RIGHT ABD TRANSVERSE COLOSTOMY, STOMA IS BEEFY RED, NO ERYTHMA NOTED, OUTPUT IS LOOSE STOOL, BROWN IN COLOR, NO LEAKAGE NOTED. PT C/O OF GAS AND MILD CRAMPING, WILL MEDICATE. PT ABLE TO VOID. PT HAS GENERAL WEAKNESS, AMBULATES WITH ASSIST. PT OSTOMY IS CDI. PT DENIES ANY PAIN AT THIS TIME. PT IV TO RFA, CDI. PT HAS CALL LIGHT WITHIN REACH, WILL CONT TO MONITOR.
[2018-12-06 20:29] VITALS: BP 104/61
--- NOTE | 2018-12-07 00:15 | NUR ---
PT IS ASLEEP IN BED. EASILY AROUSABLE. PT DENIES PAIN AT THIS TIME. PT BREATHING IS EVEN AND UNLABORED. NO RESP DISTRESS NOTED. WILL CONT TO MONITOR, CALL LIGHT WITHIN REACH.
--- NOTE | 2018-12-07 03:35 | NUR ---
ASSISTED PT TO THE BATHROOM, PT VOIDED AND STATED SHE PASSED STOOL THROUGH VAGINA. PT WIPED VAGINA INFRONT OF ME AND NOTED BROWN LIQUID STOOL ON TOILET PAPER. DR RAMIREZ CALLED AND MADE AWARE. PER DR RAMIREZ IT IS NORMAL. CHARGE NURSE MADE AWARE AND CALLED RESIDENT TO GO ASSESS THE PATIENT AND TALK TO HER ABOUT IT, PER DR RAMIREZ SHE WILL GO AND SPEAK TO PATIENT.
--- NOTE | 2018-12-07 05:01 | NUR ---
PT SLEPT THROUGH THE NIGHT. PT DENIES ANY CHEST PAIN OR SOB AT THIS TIME. NO RESP DISTRESS NOTED. PT COLOSTOMY CDI. STOMA IS BEEFY RED, OUTPUT IS 450 ML,LOOSE, COLOR IS BROWN. PT DENIES ANY PAIN AT THIS TIME. PT IS AMBULATORY WITH ASSIST. PT IV TO RFA CDI, INFUSIGN WELL. NO ACUTE CHANGES THROUGH OUT THE NIGHT. PT WAS COOPERATIVE WITH NURSING CARE. WILL ENDORSE CARE TO DAY SHIFT NURSE.
[2018-12-07 05:42] VITALS: BP 126/71
[2018-12-07 07:15] LABS: CALCIUM 8.3 mg/dL (8.5-10.1); CARBON DIOXIDE 29.6 mmol/L (21-32); CHLORIDE SERUM 101 mmol/L (98-107); CREATININE SERUM 0.7 mg/dL (0.6-1.0); GFR1 > 60 mL/min; GLUCOSE SERUM 107 mg/dL (74-106); POTASSIUM SERUM 3.5 mmol/L (3.5-5.1); SODIUM SERUM 137 mmol/L (136-145)
--- NOTE | 2018-12-07 08:00 | NUR ---
SHIFT ASSESSMENT DONE. PATIENT A/A/OX4. CLEAR UKRAINIAN SPEAKING. NO RESP DISTRESS ON RA. DENIED CHEST PAIN. COLOSTOMY TO R MID ABD. BROWN SEMI-LIQUID STOOL TO BAG NOTED. TOLERATED FULL LIQUID DIET BREAKFAST, NO N/V. ABD ROUND/SOFT. BOWEL SOUND ACTIVE. NO C/O ABD PAIN NOW. VOID VIA BRP. NEED ASSIST FOR AMBULATION. IVF OF D2 1/2NS W/ KCL 10 MEQ, 10CC/HR. IV SITE TO RFA INTACT. COLOSTOMY BAG INTACT. STOMA BEEFY RED AND SIZE 8CM TO 9CM IN DIAMETER. CALL LIGHT IN REACH.
[2018-12-07 08:18] LABS: BASOPHIL % 0.1 % (0-2)
[2018-12-07 08:19] LABS: PLATELET COUNT 122 x10^3mcL (130-400); RED CELL DISTRIBUTION WIDTH 17.9 % (11.5-14.5)
--- NOTE | 2018-12-07 08:23 | NUR ---
C/O ABD CRAMPING PAIN AFTER FULL LIQUID BREAKFAST. NORCO 10/325 PO GIVEN. ASKED PATIENT EATING SLOWLY. SEMI-LIQUID BM FROM COLOSTOMY SEEN. CONTINUE MONITOR.
[2018-12-07 09:37] VITALS: BP 143/78
--- NOTE | 2018-12-07 15:03 | NUR ---
Initial Nutrition Assessment: 228/B BRIAN BAKER IA HR Dx: Abd pain, constipation, pancytopenia PMHx: Ovarian cancer, resected in 2009 PSHx: Hysterectomy with b/l oophorectomy in 2009, Spleenectomy in 2017 Labs: BG 107H, CA 8.3L, WBC 3.4L Meds: morphine, protonix, zofran Diet: Full liquid PO Intake: (12/06) lunch, breakfast 25% each Ht: 157.48cm (62") Wt: 56.3 kg (124#) BMI: 22.7 kg/m2 Bed scale: 137.1# IBW: 110# (50 kg) %IBW: 112 UBW: 143# (February 2018) Age: 58/F Food Allergies: NKFA Skin: colostomy to R mid abd, stoma beefy red, mild edema noted there. 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 Pain 7/10 intensity. She denies blood in her vomit or stool. She has has generalized weakness. Her last bowel movement was about 8 days ago. She reports 20 lbs loss within past 6 months. RDN Visit (12/07): Patient was alert and oriented and said that she has lost 19 lbs x 9 months. Patient has been drinking ensure and was asking for snacks in between meals as she gets full easily with big meals. Patient is currently on full liquid diet. Recommendation of adding neutropenic diet precautions was discussed with RONEY Thornton. Problem with: N/V/D/C: no Problems with: Chewing/Swallowing: no Current appetite: good Recent wt change: lost 19 lbs x 9 months %wt change: 13 Vitamin/Supplement use: none (use to take longevity supplement but stopped) Special diet at home: regular, no white sugar, tries to avoid milk Physical activity: none d/t medical condition Nutrition education given: patient has questions about healthy eating. All questions were answered, low sodium foods were discussed. Patient did not have any other questions at this time. Food-drug interactions: none at this time Education given: no Estimated Nutritional Needs Based on body weight 56.3 kg Energy: 6540-5387 kcal/d (30-35 kcal/kg) Protein: 67.5-84 g/d (1.2-1.5 g/kg)- ovarian cancer/metastasis Fluid: 5435-5729 ml/d (1 ml/kcal) or per doctor Nutrition Diagnosis 1. Inadequate energy and protein intake related to poor PO as evidenced by documented PO of 25%. Intervention 1. Recommend Prosource BID for increased protein needs. 2. Recommend Neutropenic diet precautions. Monitor/Evaluate Goal: PO intake at least 75% of estimated needs Monitor: PO intake, Labs, GI function F/U in 2-3 days as high risk 12/09-
--- NOTE | 2018-12-07 15:03 | NUR ---
1. Recommend Prosource BID for increased protein needs. 2. Recommend Neutropenic diet precautions.
--- NOTE | 2018-12-07 15:30 | NUR ---
PATIENT'S MAG LEVEL 1.6 TODAY. MAG RIDER 2GM IV GIVEN.
[2018-12-07 15:46] LABS: microscopic required? NO
[2018-12-07 16:07] LABS: urine erythrocyte NEGATIVE (NEGATIVE)
[2018-12-07 17:59] VITALS: BP 144/82
--- NOTE | 2018-12-07 18:33 | NUR ---
RECEIVED PATIENT FROM ER. ALERT/ORIETNED X4; STATED RT FOOT SWOLLEN W/ PAIN, PATIENT HAD I AND D OF RT FOOT 3 DAYS AGO. VANCO 1GM IV STARTED FROM ER. IV TO L HAND W/ 22 G NEEDLE INTACT AND PATENT. RT FOOT SWELLING. RT PEDAL PULSE WEAK. CALL LIGHT IN REACH.
--- NOTE | 2018-12-07 19:00 | NUR ---
ON FULL LIQUID DIET. NO N/V. HAD 100CC OF SEMI-LIQUID, BROWN STOOL COLLECTED FROM COLOSTOMY BAG. STATED ABD PAIN ON 06/04, TOLERATED. VOID X3 VIA BRP. ENDORSED CARE TO [facility] N[facility].
--- NOTE | 2018-12-07 19:49 | NUR ---
PT RECIEVED AAO REG RESP NO SOB WITH FAMILY AT THE BEDSIDE,IV INFUSING WELL WITH THE SITE PATENT AND INTACT,ABDO IS SOFT DISTENTED WITH ACTIVE BOWEL SOUNDS,PT HAS COLOSTOMY BAG TO THE RT ABDO WITH BROWNISH OUTPUT,BED IN THE LOW POSTION AND LOCKED,PT BEING ENCORAGE TO AMBULATE,MADE COMFORTABLE IN BED AND WILL CONTINUE TO MONITOR.
[2018-12-07 21:38] VITALS: BP 122/66
--- NOTE | 2018-12-08 04:20 | NUR ---
PT RESTING AT THIS TIME,WILL CONTINUE TO MONITOR.
--- NOTE | 2018-12-08 05:53 | NUR ---
DR BROWN CALL TO SEE HOW PATIENT IS DOING AND WITH ORDERS TO D/C ANCEF WITH ORDER ROCEPHIN 1 GM QD,WILL CONTINUE TO MONITOR.
[2018-12-08 06:10] VITALS: BP 147/79
--- NOTE | 2018-12-08 06:34 | NUR ---
PT HAD A RESTING NIGHT NO CHANGE AT THIS TIME,WILL CONTINUE TO MONITOR.
[2018-12-08 06:35] LABS: CALCIUM 8.7 mg/dL (8.5-10.1); CARBON DIOXIDE 31.8 mmol/L (21-32); CHLORIDE SERUM 103 mmol/L (98-107); CREATININE SERUM 0.6 mg/dL (0.6-1.0); GFR1 > 60 mL/min; GLUCOSE SERUM 95 mg/dL (74-106); MAGNESIUM 1.6 mg/dL (1.8-2.4); POTASSIUM SERUM 3.7 mmol/L (3.5-5.1); SODIUM SERUM 140 mmol/L (136-145)
[2018-12-08 06:51] LABS: BASOPHIL % 0 % (0-2); PLATELET COUNT 128 x10^3mcL (130-400); RED CELL DISTRIBUTION WIDTH 18.4 % (11.5-14.5)
--- NOTE | 2018-12-08 08:00 | NUR ---
RECEIVED PATIENT SITTING UP IN BED A/O X4, NO NEURO DEFICITS NOTED. DENIES ANY PAIN AT THIS TIME. BREATHING EVEN AND UNLABBORED ON ROOM AIR, DENIES SOB, NO DISTRESS NOTED. PATIENT IS S/P TRANSVERSE COLOSTOMY ON 12/03/18, STOMA BEEFY RED, PATIENT PASSING GAS THROUGH COLOSTOMY WITH BROWN LIQUID STOOL NOTED IN BED. IV TO RFA INTACT INFUSING IVF WELL FREE FROM REDNESS AND INFILTRATION. NEUTROPENIC PRECAUTIONS MAINTAINED. PATIENT IS CALM WITH CARE. INSTRUCTED TO CALL FOR ASSISTANCE IF NEEDED. SAFETY PRECAUTINOS MAINTAINED. WILL MONITOR.
--- NOTE | 2018-12-08 08:45 | NUR ---
RLQ COLOSTOMY STOMA SITE RE-EVALUATION: PER CHARGE NURSE, DR. AKHTAR WILL DO A REVISION PROCEDURE THIS WEEK, SPOKE TO DAUGHTER MAIK, REGARDING COLOSTOMY CARE AND INFORM PT. AND DAUGHTER TO DISCUSS ALL INFORMATION WITH CHARGE NUESE IN REGARDING DR. AKHTAR'S CARE. PT. AND DAUGHTER VERVALIZES UNDERSTANDING. -RLQ ABDOMINAL COLOSTOMY WITH STOMA THANG RED TOWARD 2 RETENTION SUTURES SWELLING REMAIN SAME SIZE LAST EVALUATION, COLOSTOMY IS FUNCTIONING JACQUELINE STOMA SKIN DRY AND INTACT. COLOSTOMY BAG CHANGED, CUT THE WAFER SIZE 75MM TO ACCOMADATE THE SWELLING TISSUE, AND SECURED WITH DEUODERM TO LOWER PORTION EDGE OF WAFER.
--- NOTE | 2018-12-08 08:46 | NUR ---
WOUND CARE NURSE HAN RN AT BEDSIDE TO ASSESS AND CLEAN STOMA TO RT ABD, AND CHANGE COLOSTOMY BAG.
[2018-12-08 09:26] VITALS: BP 139/60
--- NOTE | 2018-12-08 10:50 | NUR ---
PATIENT RESTING IN BED COMFORTABLY WITH EYES CLOSED, BREATHING EVEN AND UNLABBORED, NO DISTRESS NOTED. SAFETY PRECAUTIONS MAINTAINED. WILL MONITOR.
--- NOTE | 2018-12-08 12:45 | NUR ---
PATIENT SITTING UP AT EDGE OF BED GETTING READY TO EAT LUNCH, NO DISTRESS NOTED. ALL NEEDS ATTENDED TO, SAFETY PRECAUTIONS MAINTAINED. WILL MONITOR.
--- NOTE | 2018-12-08 14:30 | NUR ---
AT 1420-WOUND CARE NURSE HAN AT BEDSIDE TO SPEAK WITH PATIENT AND DAUGHTER MAIK- REVIEWED HOW TO CARE FOR STOMA AND EMPTYING COLOSTOMY BAG. PATIENT AND DAUGHTER VERBALIZED UNDERSTANDING. PATIENT AND DAUGHTER MAIK IN RESTROOM, PATIENT ABLE TO EMPTY COLOSTOMY BAG WITH ASSISTANCE FROM DAUGHTER MAIK, BROWN SEMI LIQUID STOOL EMPTIED INTO TOILET. GOWN AND LINEN CHANGE PROVIDED FOR PATIENT. PATIENT NOW SITTING UP IN CHAIR AT BEDSIDE, ALL NEEDS ATTENDED TO, SAFETY PRECAUTIONS MAINTAINED. WILL MONITOR.
--- NOTE | 2018-12-08 15:11 | NUR ---
PATIENT SEEN AMBULATING IN THE HALLWAY ACCOMPANIED BY FAMILY. GAIT SLOW AND STEADY, NO DISTRESS NOTED. WILL MONITOR.
--- NOTE | 2018-12-08 17:34 | NUR ---
PATIENT SITTING UP IN BED COMFORTABLY NO DISTRESS NOTED, VISITORS AT BEDSIDE. ALL NEEDS ATTENDED TO, SAFETY PRECAUTIONS MAINTAINED. WILL MONITOR.
[2018-12-08 18:02] VITALS: BP 122/78
--- NOTE | 2018-12-08 19:20 | NUR ---
REPORT GIVEN TO JERSON PERSAUD, ALL QUESTIONS AND CONCERNS ADDRESSED. ALL CARES ENDORSED.
--- NOTE | 2018-12-08 19:46 | NUR ---
PT RECIEVED AAO REG RESP NO SOB FAMILY AT THE BEDSIDE V/S STABLE,KEPT CLEAN AND DRY TO TOUCH,IV INFUSING WELL WITH THE SITE PATENT AND INTACT,IV INFUSING WELL WITH THE SITE PATENT AND INTACT,NO PAIN REPORTED AT THIS TIME,CALL LIGHT EASY REACHED AND WILL CONTIUE TO MONITOR.
[2018-12-08 21:35] VITALS: BP 123/68
--- NOTE | 2018-12-08 23:46 | NUR ---
PT RESTING COMFORTBLY AND WILL CONTINUE TO MOJITOR.
[2018-12-09 06:15] VITALS: BP 120/70
--- NOTE | 2018-12-09 06:23 | NUR ---
PT HAD ARESTING NIGHT NO CHANGE AT THIS TIME,WILL CONTINUE TO MONITOR.
[2018-12-09 06:46] LABS: PLATELET COUNT 143 x10^3mcL (130-400)
[2018-12-09 07:15] LABS: CALCIUM 8.8 mg/dL (8.5-10.1); CARBON DIOXIDE 28.4 mmol/L (21-32); CHLORIDE SERUM 103 mmol/L (98-107); CREATININE SERUM 0.7 mg/dL (0.6-1.0); GFR1 > 60 mL/min; GLUCOSE SERUM 102 mg/dL (74-106); MAGNESIUM 1.7 mg/dL (1.8-2.4); POTASSIUM SERUM 3.5 mmol/L (3.5-5.1); SODIUM SERUM 140 mmol/L (136-145)
[2018-12-09 07:26] LABS: RED CELL DISTRIBUTION WIDTH 18.3 % (11.5-14.5)
--- NOTE | 2018-12-09 07:50 | NUR ---
RECEIVED PT FROM NEEDLE PUNCH MACHINE OPERATOR RN. Julio Cesar/MANE. MED SURG. DENIES CHEST PAIN/PRESSURE. RESPIRATIONS EQUAL AND UNLABORED ON RA. DENIES SOB. PT DENIES ANY PAIN AT THIS TIME. RT UPPER CHEST TUNNELED CATH IN PLACE, NO DRAINAGE NOTED. COLOSTMY TO RT ABDOMIN DRAINING SEMI LIQUID STOOL. IV TO RFA PATENT AND INFUSING. NO REDNESS OR SWELLING NOTED. WILL CONTINUE TO MONITOR. CALL LIGHT IN REACH. BED IN LOWEST POSITION.
--- NOTE | 2018-12-09 09:04 | NUR ---
PT SITTING UP IN BED. NO ACUTE RESP DISTRESS NOTED ON RA. PT DENIES ANY PAIN AT THIS TIME. PT ATE BREAKFAST, TOLERATED WELL. IV TO RFA PATENT AND INFUSING. NO REDNESS OR SWELLING NOTED. IV ANTIBIOTICS INFUSING ORDERED. WILL CONTINUE TO MONITOR. CALL LIGHT IN REACH. BED IN LOWEST POSITION.
[2018-12-09 09:30] VITALS: BP 127/75
[2018-12-09 10:31] LABS: ATYPICAL LYMPH 1 %; BAND NEUTROPHIL 8 % (0-10); BASOPHIL 0 % (0-2); MONOCYTE 12 % (0-7); SEGMENTED NEUTROPHILS 37 % (37-75)
[2018-12-09 10:32] LABS: PLATELET MORPHOLOGY PLATELETS DECREASED; rbc morphology (normal/abnorm) ABNORMAL (NORMAL)
--- NOTE | 2018-12-09 11:30 | NUR ---
PT SITTING UP AT BEDSIDE. NO ACUTE RESP DISTRESS NOTED ON RA. PT DENIES ANY PAIN AT THIS TIME. GIVEN PO MEDS. TOLERATED WELL. PT STATES SHE WENT TO BATHROOM AND FELT URGE TO HAVE BM. PT STATES SHE PULLED OUT HARD BM BUT NOW NO LONGER FEELS THE URGE TO HAVE A BM. PT STATES SHE IS STILL GETTING OUTPUT FROM COLOSTOMY AND EMPTIED 3 TIMES TODAY. WILL CONTINUE TO MONITOR. CALL LIGHT IN REACH. BED IN LOWEST POSITION.
--- NOTE | 2018-12-09 14:07 | NUR ---
PT IN BED RESTING. NO ACUTE RESP DISTRESS NOTED ON RA. PT DENIES ANY PAIN AT THIS TIME. GIVEN PO MEDS. TOLERATED WELL. IV PATENT AND INFUSING. NO REDNESS OR SWELLING NOTED. PT ASKING FOR BED CHANGE. WILL LET ELECTRONIC TEST TECHNICIAN KNOW. WILL CONTINUE TO MONITOR. CALL LIGHT IN REACH. BED IN LOWEST POSITION.
[2018-12-09 17:08] VITALS: BP 130/68
--- NOTE | 2018-12-09 17:29 | NUR ---
OBTAINED CONSENT FOR SURGERY.
--- NOTE | 2018-12-09 19:34 | NUR ---
PT RECIEVED AAO REG RESP NO SOB V/S STABLE,KEPT CLEAN AND DRY TO TOUCH,IV INFUSIMG WELL WITH THE SITE PATENT AND INTACT,PT HAS COLOSTOMY TO THE RT ABDO WITH BROWNISH SECREATION NO PAIN REPORTED AT THIS TIME,CALL LIGHT EASY REACHED AND WILL CONTINUJE TO MONITOR.
[2018-12-09 21:15] VITALS: BP 116/68
--- NOTE | 2018-12-09 23:40 | NUR ---
PT HAD A RESTING NIGHT WILL CONTINUE TO MONITOR.
[2018-12-10 05:44] VITALS: BP 104/65
[2018-12-10 06:25] LABS: CARBON DIOXIDE 24.4 mmol/L (21-32); CHLORIDE SERUM 104 mmol/L (98-107); CREATININE SERUM 0.6 mg/dL (0.6-1.0); GFR1 > 60 mL/min; GLUCOSE SERUM 87 mg/dL (74-106); MAGNESIUM 1.7 mg/dL (1.8-2.4); POTASSIUM SERUM 3.9 mmol/L (3.5-5.1); SODIUM SERUM 140 mmol/L (136-145)
--- NOTE | 2018-12-10 06:48 | NUR ---
PT HAD A RESTING NIGHT NO CHNGE AT THIS TIME,WILL CONTINUE TO MONITOR.
--- NOTE | 2018-12-10 07:10 | NUR ---
RECEIVED PT FROM ASSAYER HELPER RN. Julio Cesar/MANE. MED SURG. DENIES CHEST PAIN/PRESSURE. RESPIRATIONS EQUAL AND UNLABORED ON RA. DENIES SOB. PT DENIES ANY PAIN AT THIS TIME. IV PATENT AND INFUSING TO RFA. NO REDNESS OR SWELLING NOTED. RLQ COLOSTOMY. PT PROVIDED CHG WIPES. PT USED WIPES. PT BEING TAKEN OFF FLOOR FOR PROCEDURE.
[2018-12-10 07:36] LABS: PLATELET COUNT 162 x10^3mcL (130-400)
[2018-12-10 07:57] LABS: RED CELL DISTRIBUTION WIDTH 18.7 % (11.5-14.5)
--- NOTE | 2018-12-10 08:58 | NUR ---
RECEIVED REPORT FROM ROBB PERSAUD IN OR.
--- NOTE | 2018-12-10 09:10 | NUR ---
RECEIVED PT FROM OR. PT ARRIVED VIA GUERNEY ACCOMPANIED BY ROBB PERSAUD. DROWSY BUT AROUSABLE TO VOICE. PT DENIES ANY PAIN AT THIS TIME. VSS. NO ACUTE RESP DISTRESS NOTED ON RA. RLQ COLOSTOMY BACK IN PLACE, LARGE BEEFY RED STOMA NOTED. DRAINING SMALL AMOUNTS OF SEROSANGINEOUS DRAINAGE NOTED. IV TO RFA FLUSHED WELL. NO REDNESS OR SWELLING NOTED. ENCOURAGED PT TO USE CALL LIGHT WHEN NEEDING ASSISTANCE OUT OF BED. WILL CONTINUE TO MONITOR. CALL LIGHT IN REACH. BED IN LOWEST POSITION.
--- NOTE | 2018-12-10 10:26 | NUR ---
PT IN BED RESTING. PT DENIES ANY PAIN AT THIS TIME. IV TO LFA FLUSHED WELL. NO REDNESS OR SWELLING NOTED. PT RECEIVED ROCEPHIN DOSE IN OR. MAGNESIUM INFUSING ORDERED. RLQ COLOSTOMY DRAINING SANGINEOUS DRAINGE, COLOSTOMY BEEFY RED. WILL CONTINUE TO MONITOR. CALL LIGHT IN REACH. BED IN LOWEST POSITION.
--- NOTE | 2018-12-10 11:36 | NUR ---
PT SITTING UP AT BEDSIDE. PT ASKING TO HAVE COLOSTOMY BAG CHANGED DUE TO IT BEING DIFFICULT FOR HER TO EMPTY BY HERSELF. ENCOURAGED PT TO CALL FOR HELP WITH NEEDING HELP EMPTYING COLOSTOMY. PT VERBALIZED UNDERSTANDING. ASSISTED PT TO BATHROOM. PT C/O PAIN TO ABDOMEN. PT REFUSING PAIN MEDICATION. WILL CONTINUE TO MONITOR. CALL LIGHT IN REACH. BED IN LOWEST POSITION.
[2018-12-10 12:14] LABS: BAND NEUTROPHIL 6 % (0-10); BASOPHIL 0 % (0-2); MONOCYTE 27 % (0-7); PLATELET MORPHOLOGY PLATELETS NORMAL; SEGMENTED NEUTROPHILS 32 % (37-75); ovalocyte/elliptocyte 1+; rbc morphology (normal/abnorm) ABNORMAL (NORMAL); target cell (codocyte) 1+; tear drop cell (dacryocyte) 1+
--- NOTE | 2018-12-10 13:11 | NUR ---
Follow-up Nutrition Assessment: Angela Gregory F/U Rm 228B Dx: Abdominal Pain, Constipation, Pancytopenia PMHx: Ovarian cancer, resected in 2009 Labs: Magnes. 1.7L, WBC 4.1L, Hgb. 8.6L, Hct. 25L Meds: Mylanta gas, Zofran Diet: Full Liquid Diet PO Intake: (12/06) FL- 25%, (12/07) CL-40, FL-50%, (12/09) FL-100% Weights: (12/01) 56.3 Bedscale: (12/10) I/Os: (12/10) Total intake: 1810, total output: 700, Fluid Balance: 1110 Skin: RLQ Colostomy in place Brannon: 19 Edema: None GI: Soft, flat, nontender. Active BS. Denies N/V. RLQ colostomy draining semi liquid stools Last BM: 12/09/18 RD Note (12/10/18): Spoke with HUNG Gallegos regarding pt's PO intake and she stated that she usually will finish her Ensure and tolerates the liquids about 60-70%. She said the pt does not have any N/V/D/C. She said the pt is currently tolerating the full liquid diet well. RN assured that patient was still following a neutropenic diet as well. Estimated Nutritional Needs Based on actual body weight 56kg Energy: 1690-1960kcal/day (30-35kcal/kg for maintenance) Protein: 67-84g/day (1.2-1.5g/kg for lean body mass) Fluid: 1690-1960mL/day (1 mL/kcal) or per MD Nutrition Diagnosis: 1. Inadequate energy and protein intake r/t poor PO aeb PO of 25% (Improved) Intervention: 1. Continue with Prosource BID 2. Continue with FLD as tolerated with Neutropenic precautions Monitor/Evaluate: Goal: Have pt meet at least 75% of estimated needs Monitor: PO intake, Labs, GI function F/U 10/13-10/15
--- NOTE | 2018-12-10 13:12 | NUR ---
Intervention: 1. Continue with Prosource BID 2. Continue with FLD as tolerated with Neutropenic precautions
--- NOTE | 2018-12-10 13:52 | NUR ---
PT SITTING UP IN BED. PT C/O DRAINAGE FROM COLOSTOMY SITE. NOTED SMALL AMOUNT OF SEROSANGINEOUS DRAINGE FROM COLOSTOMY SITE. EMPTIED 10 ML OF STOOL FROM COLOSTOMY. WOUND CARE NURSE HAN RECOMMENDS TO MONITOR SITE AND HAVE SURGEON DO FIRST DRESSING CHANGE. CHARGE NURSE MADE AWARE. PER CHARGE NURSE CONTINUE TO MONITOR. PT ENCOURAGED TO CALL IF ANY MORE DRAINGE IS NOTED. WILL CONTINUE TO MONITOR. CALL LIGHT IN REACH. BED IN LOWEST POSITION.
[2018-12-10 16:44] VITALS: BP 114/69
--- NOTE | 2018-12-10 17:36 | NUR ---
PT SITTING UP IN BED. FAMILY AT BEDSIDE. NO ACUTE RESP DISTRESS NOTED ON RA. PT DENIES ANY PAIN AT THIS TIME. ASKED PT IF SHE HAS HAD ANYMORE LEAKING FROM COLOSTOMY BAG. PT STATES "I DON'T KNOW. I DONT WANT TO LOOK AT IT RIGHT NOW" PT ASKED TO COME BACK LATER TO CHECK. WILL CONTINUE TO MONITOR. CALL LIGHT IN REACH. BED IN LOWEST POSITION.
--- NOTE | 2018-12-10 20:00 | NUR ---
RECEIVED PT IN BED, RESTING QUIETLY. A/O X4. DENIES HEADACHE/DIZZINESS. RESP. EVEN AND UNLABORED. LUNG SOUNDS CLEAR BILAT. ON ROOM AIR, NO ACUTE DISTRESS NOTED. AFEBRILE AND VITAL SIGNS STABLE.DENIES CP OR ANY DISCOMFORT AT THIS TIME. COLOSTOMY TO RLQ ABD. INTACT AND MIN. LIQ. STOOL NOTED. ABD. SOFT, NON DISTENDED, BS ACTTIVE. NO N/V NOTED. IVF, D51/2 WITH 10MEQ KCL AT 10ML/HR, INFUSING VIA RFA. ASSISTED WITH HS CARE. CALL LIGHT WITHIN REACH. WILL CONTINUE TO MONITOR.
[2018-12-10 20:51] VITALS: BP 121/63
--- NOTE | 2018-12-11 00:17 | NUR ---
RESTING QUIETLY IN BED WITH EYES CLOSED, APPEARS ASLEEP , EASILY AROUSABLE.RESP. EVEN AND UNLABORED. NO ACUTE DISTRESS NOTED. IVF INTACT AND INFUSING WELL. NEUTROPENIC PRECAUTION MAINTAINED. CALL LIGHT WITHIN REACH. WILL CONTINUE TO MONITOR.
--- NOTE | 2018-12-11 06:20 | NUR ---
SLEPT WELL DURING THE NIGHT. NO COMPLAINTS OF PAIN OR ANY DISCOMFORT. AFEBRILE AND VITAL SIGNS STABLE. RESP. EVEN AND UNLABORED. ON ROOM AIR , NO ACUTE DISTRESS NOTED.IVF INTACT AND INFUSING WELL, SITE CLEAR. COLOSTOMY SITE,DRAINING MIN LIQ. BROWNISH COLOR STOOL FROM SIDES OF STOMA, PT REQUESTED COLOSTOMY BAG TO BE CHANGED, NEW COLOSTOMY BAG APPLIED. STOMA IS BEEFY AND RED.KEPT COMFORTABLE. DUE MEDS GIVEN ORDERED. TOD. WELL. CALL LIGHT WITHIN REACH. WILL CONTINUE TO MONITOR.
[2018-12-11 06:21] VITALS: BP 121/69
[2018-12-11 06:44] LABS: CALCIUM 8.9 mg/dL (8.5-10.1); CHLORIDE SERUM 103 mmol/L (98-107); CREATININE SERUM 0.6 mg/dL (0.6-1.0); GFR1 > 60 mL/min; GLUCOSE SERUM 92 mg/dL (74-106); PLATELET COUNT 206 x10^3mcL (130-400); POTASSIUM SERUM 4.2 mmol/L (3.5-5.1); SODIUM SERUM 139 mmol/L (136-145)
[2018-12-11 07:13] LABS: RED CELL DISTRIBUTION WIDTH 18.4 % (11.5-14.5)
--- NOTE | 2018-12-11 07:20 | NUR ---
RECIEVED PT RESTING IN BED WITH NO C/O DISTRESS. A/O X4, NO HARRISON OR DIZZINESS. IV INTACT AND PATENT WITH NO REDNESS OR INFLAMMATION. COLOSTOMY INTACT AND DRAINING BROWN STOOL. SAFETY PREC IN PLACE, CALL LIGHT WITHIN REACH, WILL MONITOR.
[2018-12-11 08:16] VITALS: BP 125/69
--- NOTE | 2018-12-11 10:00 | NUR ---
PT STABLE, CALL LIGHT WITHIN REACH, WILL MONITOR.
[2018-12-11 11:28] LABS: BAND NEUTROPHIL 0 % (0-10); SEGMENTED NEUTROPHILS 60 % (37-75)
[2018-12-11 11:29] LABS: ATYPICAL LYMPH 2 %; MONOCYTE 4 % (0-7); rbc morphology (normal/abnorm) ABNORMAL (NORMAL)
--- NOTE | 2018-12-11 12:30 | NUR ---
UPON ENTERING PT ROOM TO CHECK ON HER PT COLOSTOMY BAG WAS FOUND REMOVED FROM PT STOMA SITE. PT STATED THAT "THE COLOSTOMY BAG WAS LEAKING AND FELL OFF". SITE WAS ASSESSED AND NOTED TO BE CLEAN AND DRY AROUND STOMA SITE. SITE THEN WAS CLEANED, PREPPED, AND A NEW BAG WAS ATTACHED TO PT. DRESSING WAS ATTACHED WITH EXTRA DRESSINGS AND TAPE TO PREVENT ANY FURTHER LEAKAGE.WILL CONTINUE TO MONITOR.
--- NOTE | 2018-12-11 15:00 | NUR ---
PT STABLE. NO DISTRESS NOTED. CALL LIGHT WITHIN REACH, SAFETY PREC IN PLACE, WILL MONIOTR.
[2018-12-11 17:18] VITALS: BP 121/69
--- NOTE | 2018-12-11 18:30 | NUR ---
COLOSTOMY BAG CLEANED, PREPPED, AND CHANGED AGAIN D/T LEAKAGE. TOLERATED WELL. NO DISTRESS. CDI AT THIS TIME. DAUGHTER AT BEDSIDE.
--- NOTE | 2018-12-11 19:15 | NUR ---
REPORT RECEIVED FROM DAY SHIFT RN. PATIENT WAS SEEN AND IS RESTING COMFORTABLY IN BED WITH DAUGHTER AND FAMILY AT BEDSIDE. BREATHING EVEN AND UNLABORED ON ROOM AIR. NO SOB OR RESP DISTRESS NOTED. NO C/O PAIN. DENIES CHEST PAIN. IV TO THE RFA INFUSING WELL. PATENT AND INTACT. NO REDNESS OR SWELLING NOTED. COLOSTOMY BAG NOTED TO THE RLQ. NO OUTPUT NOTED AT THIS TIME. DENIES N/V. NO DISTENTION NOTED. COMFORT AND SAFETY MEASURES IN PLACE. BED IS LOCKED AND IN THE LOWEST POSITION. SIDE RAILS UP X2. CALL LIGHT IS WITHIN REACH. WILL CONTINUE TO MONITOR PATIENT.
[2018-12-11 21:03] VITALS: BP 113/67
--- NOTE | 2018-12-11 23:00 | NUR ---
PAGE GATED DR HARRISED ABOUT ADVANCE PATIENT'S DIET. PATIENT AND FAMILY WERE ASKING IF THEY COULD.
--- NOTE | 2018-12-12 00:07 | NUR ---
PATIENT IS RESTING COMFORTABLY IN BED. NO DISTRESS NOTED. BREATHING EVEN AND UNLABORED. NO SOB OR RESP DISTRESS NOTED. IVF INFUSING WELL. DENIES PAIN AT THIS TIME. COLOSTOMY TO RLQ IN PLACE. STOMA BEEFY RED AND INTACT. NO LEAKING NOTED. SCANT AMOUNT OF LIQUID ORANGE COLOR STOOL. SAFETY MEASURES IN PLACE. NEUTROPENIC PRECAUTIONS IN PLACE. CALL LIGHT IS WITHIN REACH. WILL CONTINUE TO MONITOR
--- NOTE | 2018-12-12 05:06 | NUR ---
PROVIDED PATIENT AND FAMILY WITH WRITTEN EDUCATION FOR CARING FOR THE NEW COLOSTOMY AT HOME.
--- NOTE | 2018-12-12 05:14 | NUR ---
PATIENT SLEPT IN INTERVALS THROUGHOUT THE NIGHT. NO ACUTE CHANGES NOTED. BREATHING EVEN AND UNLABORED ON ROOM AIR. NO SOB. NO DISTRESS NOTED. NO C/O PAIN THROUGHOUT THE NIGHT. DENIES CHEST PAIN AND N/V. IV TO THE RFA INFUSING WELL. PATENT AND INTACT. NO REDNESS OR SWELLING NOTED. COLOSTOMY BAG TO RLQ. NO OUTPUT NOTED. VERY SCANT ORANGE LIQUID STOOL. NO LEAKAGE NOTED. STOMA IS BEEFY RED AND INTACT. SAFETY MEASURES IN PLACE. CALL LIGHT IS WITHIN REACH. NEUTROPENIC PRECAUTIONS IN PLACE. WILL CONTINUE TO MONITOR AND ENDORSE CARE TO DAY SHIFT RN.
[2018-12-12 05:43] VITALS: BP 113/62
[2018-12-12 06:21] LABS: PLATELET COUNT 238 x10^3mcL (130-400)
[2018-12-12 06:49] LABS: CARBON DIOXIDE 25.2 mmol/L (21-32); CHLORIDE SERUM 103 mmol/L (98-107); CREATININE SERUM 0.6 mg/dL (0.6-1.0); GFR1 > 60 mL/min; GLUCOSE SERUM 91 mg/dL (74-106); SODIUM SERUM 138 mmol/L (136-145)
--- NOTE | 2018-12-12 07:10 | NUR ---
PT ASLEEP IN BED WITH DAUGHTER AT BEDSIDE. NO S/S OF ANY PAIN, DISTRESS, OR SOB. MIDLINE LEFT UPPER ARM INTACT AND PATENT WITH NO REDNESS OR INFLAMMATION NOTED. CAPED OFF WITH BLUE CAP. SSAFETY PRECAUTIONS IN PLACE, CALL LIGHT WITHIN REACH, WILL MONITOR.
--- NOTE | 2018-12-12 07:40 | NUR ---
PT RESTING IN BED WITH NO C/O PAIN, DISTRESS, OR SOB. A/O X4, NO HARRISON OR DIZZINESS NOTED. RLQ COLOSTOMY BAG INTACT AT THIS TIME, SOME OLD LEAKAGE NOTED TO TAPE JAYNA AROUND STOMA, WILL CLEAN AND CHANGE TODAY.STOMA BEEFY RED WITH NO S/S OF INFECTION. BAG LAST CHANGED X2 12/11/18 DAY SHIFT. PT STABLE. SAFETY PRECAUTIONS IN PLACE, CALL LIGHT WITHIN RECH, WILL MONITOR.
[2018-12-12 08:04] LABS: RED CELL DISTRIBUTION WIDTH 18.9 % (11.5-14.5)
[2018-12-12 08:10] VITALS: BP 98/63
--- NOTE | 2018-12-12 10:33 | NUR ---
COLOSTOMY BAG CHANGED AGAIN PER PT REQUEST D/T SMALL AMOUNT OF LEAKAGE. AREA CLEANED, PREPPED, AND BAGGED. PT TOLERATED WELL. NO S/S OF INFECTION NOTED.
[2018-12-12 10:52] LABS: BAND NEUTROPHIL 5 % (0-10); BASOPHIL 0 % (0-2); MONOCYTE 23 % (0-7)
[2018-12-12 10:53] LABS: PLATELET MORPHOLOGY PLATELETS NORMAL; SEGMENTED NEUTROPHILS 33 % (37-75); ovalocyte/elliptocyte 1+; rbc morphology (normal/abnorm) ABNORMAL (NORMAL); target cell (codocyte) 1+
--- NOTE | 2018-12-12 13:52 | NUR ---
PT STABLE WITH DAUGHTER AT BEDSIDE. NO C/O PAIN, DISTRESS, OR SOB. COLOSTOMY INTACT AT THSI TIME. WILL CONTINUE TO MONITOR.
[2018-12-12 16:07] VITALS: BP 102/60
--- NOTE | 2018-12-12 18:42 | NUR ---
PT STABLE AT THIS TIME. DENIES ANY PAIN, DISTRESS, OR SOB. TOLERATED ALL CARES WELL. A/O X4. LUNGS CTA. IV INTACT AND PATENT WITH NO REDNESS OR INFLAMMATION, RUNNING 10ML/HR D5/45%NS/10MEQ KCL. COLOSTOMY INTACT AND PATENT, NO OUT OUT DURING SHIFT. SAFETY PRECAUTIONS IN PLACE, CALL LIGHT WITHIN REACH, WILL ENDORSE TO NIGHT NURSE.
--- NOTE | 2018-12-12 19:25 | NUR ---
REPORT RECIEVED FROM DAY SHIFT RN. PATIENT WAS SEEN AND IS RESTING COMFORTABLY IN BED FRIENDS AT BEDSIDE. NO DISTRESS NOTED. BREATHING EVEN AND UNLABORED ON ROOM AIR. NO SOB OR RESP DISTRESS NOTED. DENIES CHEST PAIN/PRESSURE. NO C/O PAIN. IV TO THE RFA INFUSING WELL. PATENT AND INTACT. NO REDNESS OR SWELLING NOTED. COLOSTOMY TO THE RLQ. NO OUTPUT NOTED. NO LEAKAGE NOTED. EDUCATED TO CALL IF COLOSTOMY BAG STARTS TO LEAK. VERBALIZED UNDERSTANDING. COMFORT AND SAFETY MEASURES IN PLACE. BED IS LOCKED AND IN THE LOWEST POSITION. SIDE RAILS UP X2. NEUTROPENIC PRECAUTIONS IN PLACE. CALL LIGHT IS WITHIN REACH. WILL CONTINUE TO MONITOR.
--- NOTE | 2018-12-12 19:25 | NUR ---
REPORT RECIEVED FROM DAY SHIFT RN. PATIENT WAS SEEN AND IS RESTING COMFORTABLY IN BED FRIENDS AT BEDSIDE. NO DISTRESS NOTED. BREATHING EVEN AND UNLABORED ON ROOM AIR. NO SOB OR RESP DISTRESS NOTED. DENIES CHEST PAIN/PRESSURE. NO C/O PAIN. IV TO THE RFA. SALINE LOCK. PATENT AND INTACT. NO REDNESS OR SWELLING NOTED. COLOSTOMY TO THE RLQ. NO OUTPUT NOTED. NO LEAKAGE NOTED. STOMA BEEFY RED AND INTACT. EDUCATED TO CALL IF COLOSTOMY BAG STARTS TO LEAK. VERBALIZED UNDERSTANDING. COMFORT AND SAFETY MEASURES IN PLACE. BED IS LOCKED AND IN THE LOWEST POSITION. SIDE RAILS UP X2. NEUTROPENIC PRECAUTIONS IN PLACE. CALL LIGHT IS WITHIN REACH. WILL CONTINUE TO MONITOR.
[2018-12-12 20:38] VITALS: BP 97/55
--- NOTE | 2018-12-13 01:15 | NUR ---
PATIENT IS RESTING IN BED. NO DISTRESS NOTED. BREATHING EVEN AND UNLABORED ON ROOM AIR. DENIES PAIN AT THIS TIME. COLOSTOMY BAG TO RLQ IN PLACE. NO LEAKAGE NOTED. NO OUTPUT NOTED. SAFETY MEASURES IN PLACE. NEUTROPENIC PRECAUTIONS IN PLACE. CALL LIGHT IS WITHIN REACH. WILL CONTINUE TO MONITOR.
--- NOTE | 2018-12-13 01:15 | NUR ---
PATIENT IS RESTING IN BED. NO DISTRESS NOTED. BREATHING EVEN AND UNLABORED ON ROOM AIR. DENIES PAIN AT THIS TIME. IVF INFUSING WELL. COLOSTOMY BAG TO RLQ IN PLACE. NO LEAKAGE NOTED. NO OUTPUT NOTED. SAFETY MEASURES IN PLACE. NEUTROPENIC PRECAUTIONS IN PLACE. CALL LIGHT IS WITHIN REACH. WILL CONTINUE TO MONITOR.
--- NOTE | 2018-12-13 05:12 | NUR ---
PATIENT SLEPT IN INTERVALS THROUGHOUT THE NIGHT. NO ACUTE CHANGES NOTED. BREATHING EVEN AND UNLABORED ON ROOM AIR. NO DISTRESS NOTED. IV TO THE RFA, SALINE LOCK. PATENT AND INTACT. NO REDNESS OR SWELLING NOTED. NO C/O PAIN THROUGHOUT THE NIGHT. DENIES N/V. COLOSTOMY TO RLQ. NO OUTPUT NOTED. STOMA IS BEEFY RED AND INTACT. NEUTROPENIC PRECAUTIONS IN PLACE. SAFETY MEASURES IN PLACE. CALL LIGHT IS WITHIN REACH. WILL CONTINUE TO MONITOR AND ENDORSE CARE TO DAY SHIFT RN.
[2018-12-13 05:48] VITALS: BP 114/66
[2018-12-13 06:38] LABS: BASOPHIL % 0.4 % (0-2); PLATELET COUNT 272 x10^3mcL (130-400)
[2018-12-13 07:01] LABS: CALCIUM 9.3 mg/dL (8.5-10.1); CARBON DIOXIDE 24.2 mmol/L (21-32); CHLORIDE SERUM 102 mmol/L (98-107); CREATININE SERUM 0.7 mg/dL (0.6-1.0); GFR1 > 60 mL/min; GLUCOSE SERUM 90 mg/dL (74-106); POTASSIUM SERUM 3.9 mmol/L (3.5-5.1); SODIUM SERUM 138 mmol/L (136-145)
[2018-12-13 07:07] LABS: RED CELL DISTRIBUTION WIDTH 18.8 % (11.5-14.5)
--- NOTE | 2018-12-13 07:24 | NUR ---
RECEIVED REPORT FROM CHASITY PERSAUD. PATIENT RESTING COMFORTABLY IN BED. ALL NEEDS MET. SALINE LOCK TO RFA IS PATENT AND INTACT. NO REDNESS OR PAIN. PT ON ROOM AIR. NO C/O SOB AND NO DISTRESS NOTED. ALL QUESTIONS AND CONCERNS ADDRESSED.
[2018-12-13 09:22] VITALS: BP 90/65
[2018-12-13 17:11] VITALS: BP 122/63
--- NOTE | 2018-12-13 19:10 | NUR ---
REPORT RECEIVED FROM DAY SHIFT RN. PATIENT WAS SEEN AND IS RESTING COMFORTABLY IN BED W/ DAUGHTER AT BEDSIDE. NO DISTRESS NOTED. BREATHING EVEN AND UNLABORED ON ROOM AIR. NO SOB OR RESP DISTRESS NOTED. DENIES CHEST PAIN. NO C/O PAIN. IV TO THE RAC. SALINE LOCK. PATENT AND INTACT. NO REDNESS OR SWELLING NOTED. COLOSTOMY TO THE RLQ. NO LEAKAGE AT THIS TIME. NO OUTPUT NOTED. PATIENT WILL BE NPO AFTER MIDNIGHT FOR IMAGING. EDUCATED PATIENT AND DAUGHTER. BOTH VERBALIZED UNDERSTANDING. COMFORT AND SAFETY MEASURES IN PLACE. NEUTROPENIC PRECAUTIONS IN PLACE. BED IS LOCKED AND IN THE LOWEST POSITION. SIDE RAILS X2. CALL LIGHT IS WITHIN REACH. WILL CONTINUE TO MONITOR.
--- NOTE | 2018-12-13 19:24 | NUR ---
REPORT GIVEN TO BRITTNEY PERSAUD. PATIENT RESTING COMFORTABLY IN BED WITH FAMILY AT BEDSIDE. ALL NEEDS MET. IV TO RAC IS PATENT AND INTACT. NO REDNESS OR PAIN. PT ON ROOM AIR. NO C/O SOB AND NO DISTRESS NOTED. ALL QUESTIONS AND CONCERNS ADDRESSED. ALL CARES ENDORSED.
[2018-12-13 20:43] VITALS: BP 116/57
--- NOTE | 2018-12-13 22:00 | NUR ---
PATIENT C/O DISCOMFORT TO RAC IV. PATIENT STATES THAT IT'S HARD FOR HER TO PERFORM HER ADL'S SINCE SHE CAN'T BEND HER ARM AND WHEN SHE DOES IT HURTS HER. PATIENT IS REQUESTING FOR THE IV TO BE REMOVED AND A NEW ONE PLACE. RAC IV REMOVED WITH CATHETER INTACT. NEW IV PLACED TO RIGHT WRIST, 22G. SALINE LOCK. FLUSHES WELL. PATENT AND INTACT. NO REDNESS OR SWELLING NOTED. TOLERATED WELL. NO C/O PAIN. DENIES CHEST PAIN. DENIES N/V. BREATHING EVEN. CALL LIGHT IS WITHIN REACH. WILL CONTINUE TO MONITOR.
--- NOTE | 2018-12-14 03:18 | NUR ---
PATIENT IS RESTING IN BED WITH EYES CLOSED. NO DISTRESS NOTED. BREATHING EVEN AND UNLABORED ON ROOM AIR. SAFETY MEASURES IN PLACE. CALL LIGHT IS WITHIN REACH. NO S/S OF PAIN. WILL CONTINUE TO MONITOR.
--- NOTE | 2018-12-14 05:52 | NUR ---
PATIENT IS LAYING IN BED AT THIS TIME USING HER PHONE. NO DISTRESS NOTED. NO ACUTE CHANGED NOTED. BREATHING EVEN ON ROOM AIR. NO C/O OF PAIN OR N/V THROUGHOUT THE NIGHT. IV TO THE RIGHT WRIST. PATENT AND INTACT. NO REDNESS OR SWELLING NOTED. NPO AT THIS TIME FOR XRAY BARIUM ENEMA THIS MORNING. PATIENT IS AWARE. COLOSTOMY TO RLQ. STOMA BEEFY RED AND INTACT. NO OUTPUT NOTED. SAFETY MEASURES IN PLACE. CALL LIGHT IS WITHIN REACH. NEUTROPENIC PRECAUTIONS IN PLACE. WILL ENDORSE CARE TO DAY SHIFT RN.
[2018-12-14 05:54] VITALS: BP 117/62
[2018-12-14 07:21] LABS: PLATELET COUNT 321 x10^3mcL (130-400)
[2018-12-14 07:30] LABS: CALCIUM 9.2 mg/dL (8.5-10.1); CARBON DIOXIDE 29.8 mmol/L (21-32); CHLORIDE SERUM 104 mmol/L (98-107); CREATININE SERUM 0.6 mg/dL (0.6-1.0); GFR1 > 60 mL/min; GLUCOSE SERUM 93 mg/dL (74-106); SODIUM SERUM 140 mmol/L (136-145)
--- NOTE | 2018-12-14 07:45 | NUR ---
ALERT AND ORIENTED. BREATHING FREELY ON RA. DENIES ANY PAIN. NO TELE. SL TO RIGHT WRIST. NPO FOR BE THIS AM. INDEPENDENT W ADL'S. ABD FLAT. COLOSTOMY DRAINING AROUND DRESSING SMALL AMT TANISH MUCOUSY DRAINAGE. WILL CHANAGE COLOSTOMY THIS AM. REVERSE ISOLATION FOR NEUTROPENIC ISOLATION. CALL LIGHT WITHIN REACH.
[2018-12-14 10:01] VITALS: BP 111/62
--- NOTE | 2018-12-14 10:17 | NUR ---
PT GOING DOWN STAIRS FOR BE. IV HL'D. HAS BEEN NPO.
--- NOTE | 2018-12-14 11:11 | NUR ---
PT BACK FROM BARIUM ENEMA. SITTING UP AT EDGE OF BED EATING BREAKFAST.
[2018-12-14 11:55] LABS: BAND NEUTROPHIL 2 % (0-10); BASOPHIL 1 % (0-2); MONOCYTE 7 % (0-7); SEGMENTED NEUTROPHILS 38 % (37-75)
[2018-12-14 11:58] LABS: PLATELET MORPHOLOGY PLATELETS NORMAL; rbc morphology (normal/abnorm) ABNORMAL (NORMAL)
--- NOTE | 2018-12-14 12:28 | NUR ---
DR. BROWN CAME IN TO REMOVE JAYME FROM COLOSTOMY SITE. COLOSTOMY AREA CLEANED UP AND BAG CHANGED. PT CLEANED UP IN BATHROOM WHILE I CHANGED BED LINENS. GAVE CLEAN GOWEN.
--- NOTE | 2018-12-14 13:42 | NUR ---
Follow-up Nutrition Assessment: 228/B BRIAN BAKER MR Dx: Abd pain, constipation, pancytopenia PMHx: Ovarian cancer, resected in 2009 Labs: (12/14) WBC 3.5L, HGB 8.8L, Meds: Mylicon, protonix, Tylenol, zofran Diet: Regular PO Intake: (12/13) lunch 60%, breakfast 75%, (12/12) breakfast 100% Weights: (12/01) 56.3 kg, (12/14) 56.8 kg (bedscale) Skin: intact Brannon: 20 I/Os: (12/14) 770/0 (770) Edema: none GI: colostomy RLQ Last BM: 12/13 RDN Visit (12/14): Patient was alert and oriented and spoke limited Romansh. She said that she does not have any N/V at this time. HUNG Montes was doing ostomy care. Patient is on neutropenic diet precautions. Patient said she is drinking prosource and her weight has remained stable since 12/01/18. Spoke with SPOT REMOVER Jone to add neutropenic diet precautions under diet order in Cued. Estimated Nutritional Needs Based on body weight 56.3 kg Energy: 0605-5177 kcal/d (30-35 kcal/kg) Protein: 67.5-84 g/d (1.2-1.5 g/kg) - ovarian cancer/metastasis Fluid: 9144-4696 ml/d (1 ml/kcal) or per doctor Nutrition Diagnosis 1. Inadequate energy and protein intake related to poor PO as evidenced by documented PO of 25%. (improving PO (12/13) 60%) Intervention 1. Recommend continuing neutropenic regular diet w/ prosource BID. Monitor/Evaluate Goal: Have pt meet at least 75% of estimated needs Monitor: PO intake, Labs, GI function F/U in 3-5 days as moderate risk 12/17-
--- NOTE | 2018-12-14 13:42 | NUR ---
Recommend continuing neutropenic regular diet w/ prosource BID.
[2018-12-14 17:00] VITALS: BP 111/66
--- NOTE | 2018-12-14 17:14 | NUR ---
RLQ ABDOMINAL COLOSTOMY SUTURES REMOVED WITH STOMA BEEFY RED, SWELLING REDUCED AND PER PRIMARY RN COLOSTOMY BAG WAS CHANGED THIS MORNING. COLOSTOMY IS FUNCTIONING WITH SOFT STOOL, SMALL AMOUNT OUTPUT IN THE BAG. JACQUELINE STOMA SKIN DRY AND INTACT. CONTINUE OSTOMY CARE PER PROTOCOL AND DURING OSTOMY CARE PLEASE FOLLOW INSTRUCTION BELOW: -CHECK JACQUELINE STOMA SKIN CONDITION EVERY TIME WAFER CHANGED Q 5 DAYS AND PRN IF DISPLACED -CLEANSE STOMA AND JACQUELINE STOMA SKIN WITH SOAP AND WATER, PAT DRY -APPLY SKIN PREP TO JACQUEILNE-OSTOMY SKIN -APPLY STOMA ADHESIVE PAST/EKAIN RING, NEAR THE EDGE OF STOMA SKIN AREA, PAT FLAT. APPLY SKIN PREP TO JACQUELINE-STOMA SKIN -USE 2- PIECES FREDRICK OSTOMY DEVICES WITH 2 1/2" (64MM), CUT TO FIT THE STOMA SITE APPLY PRE-CUT WAFER TO OSTOMY AND ATTACHED POUCH TO WAFER. CHANGE WAFER Q5 DAYS. -EMPTY AND RINSE POUCH WHEN IT IS 1/3 FULL. CHANGE POUCH Q5 DAYS AND PRN IF LEAK -MAY DISCHARGE HOME WITH SULLPIES FOLLOWIN COMPLETE FREDRICK TWO PIECE POUCH SET CHANGES 1 TUBE OF STOMA ADHESIVE PASTE OR 4 ESTEBAN RING 1 BOTTLE OF STOMA ADHESIVE POWDER 4 SKIN PREP
[2018-12-14 19:15] VITALS: BP 108/54
--- NOTE | 2018-12-14 19:41 | NUR ---
ALERT AND ORIENTED. BREATHING FREELY ON RA. NO C/O PAIN THIS SHIFT. GOOD APPETITE. INDEPENDENT W ADL'S. SL TO RT WRIST. REMAINS ON REVERSE ISOLATION . NEUTROPENIC ISOLATION. HAN HENRIQUEZ WAS IN TO SEE PT TO PROVIDE TEACHING FOR COLOSTOMY CARE. CALL LIGHT WITHIN REACH. DR. AKHTAR REMOVED COLOSTOMY JAYME THIS AM.
--- NOTE | 2018-12-14 19:42 | NUR ---
RECEIVED PT AWAKE ALERT AND VERBALLY RESPONSIVE IN JAPANESE AND SPEAKS LITTLE VIETNAMESE.DENIES ANY PAIN AT THIS TIME.COLOSTOMY TO R ABDOMEN TO SCANTY OUTPUT AT THIS TIME.STOMA BEEFY RED AND NOTICEABLY BIG IN SIZE.NO LEAKS FROM DRESSING NOTED.ACTIVE BOWEL SOUNDS.NO N/V NOTED.ON NEUTROPENIC PRECAUTIONS.WILL OBSERVE PROTOCOL.WILL CONTINUE TO MONITOR.
--- NOTE | 2018-12-14 22:53 | NUR ---
PT REQUESTED FOR NEW COLOSTOMY BAG BUT WANTS IT CHANGED IN THE MORNING.OFFERED TO DO IT TONIGHT BUT ONLY WANTS TAPE REINFORCED AROUND BAG.INFORMED OF SKIN IRRITATION AROUND SITE BUT PREFERS BAG CHANGED IN AM.WILL CONTINUE TO MONITOR.
--- NOTE | 2018-12-15 04:42 | NUR ---
PT SLEPT WELL ALL NIGHT.DENIES ANY PAIN OR DISCOMFORT.NO N/V NOTED.LEAKS NOTED FROM COLOSTOMY BAG.WILL CHANGE BAG LATER THIS AM REQUESTED.WILL CONTINUE TO MONITOR.
--- NOTE | 2018-12-15 05:33 | NUR ---
OFFERED TO CHANGE COLOSTOMY BAG AT THIS TIME BUT PREFERS TO HAVE IT CHANGED AFTER HER BREAKFAST AND AFTER HER SHOWER THIS AM.WILL CALL ONCE SHE IS READY.
[2018-12-15 05:52] VITALS: BP 100/55
--- NOTE | 2018-12-15 06:24 | NUR ---
REFUSED LAB WORKS THIS AM.CHARGE NURSE AWARE.WILL INFORM
--- NOTE | 2018-12-15 07:52 | NUR ---
RECEIVED PATIENT FROM HUNG BLANCO. PATIENT IN BED, NO COMPLAINTS OF PAIN AT THIS TIME. PATIENT STATES SHE WOULD LIKE A FEMALE NURSE AND SPEECH TEACHER TO HELP HER CHANGE HER COLOSTOMY BAG AND TO ASSIST HER TO SHOWER. PATIENT AWARE ABOUT CURRENT PLAN OF CARE. WILL CONTINUE TO MONITOR, CALL LIGHT IN REACH AT THIS TIME.
[2018-12-15 08:10] VITALS: BP 107/63
[2018-12-15 10:51] LABS: PLATELET COUNT 434 x10^3mcL (130-400)
[2018-12-15 11:17] LABS: MONOCYTE 6 % (0-7); SEGMENTED NEUTROPHILS 29 % (37-75)
[2018-12-15 11:18] LABS: BAND NEUTROPHIL 8 % (0-10); BASOPHIL 0 % (0-2); PLATELET MORPHOLOGY PLATELETS INCREASED; rbc morphology (normal/abnorm) ABNORMAL (NORMAL)
--- NOTE | 2018-12-15 12:33 | NUR ---
PATIENT COLOSTOMY BAG CHANGED, WILL CONTINUE TO MONITOR. COMMERCIAL TECHNICIAN NETTA PLACED ORDER FOR PATIENT TRANSFER. IV ACCESS ALSO REMOVED DUE TO PAIN AT SITE. NEW IV ACCESS TO BE PLACED LATER TODAY. CURRENTLY NO OTHER COMPLAINTS, WILL CONTINUE TO MONITOR, CALL LIGHT IN REACH.
--- NOTE | 2018-12-15 12:59 | NUR ---
PATIENT SEATED AT BEDSIDE, NO COMPLAINTS OF PAIN AT THIS TIME. PATIENT AWARE THAT IV WILL BE STARTED LATER. NO COMPLAINTS OF LEAKAGE FOR COLOSTOMY BAG.
--- NOTE | 2018-12-15 16:27 | NUR ---
SPOKE TO PATIENT DAUGHTER IN ROOM ABOUT CERTIFIED ORTHOTIST PRACTICE MANAGER NETTA PLAN. DAUGHTER MAIK VERBALIZES UNDERSTANDING. CALL LIGHT IN REACH, NO COMPLAINTS OF PAIN OR DISCOMFORT, COLOSTOMY BAG INTACT AT THIS TIME.
[2018-12-15 17:00] VITALS: BP 104/55
--- NOTE | 2018-12-15 18:53 | NUR ---
PATIENT SEATED AT BEDSIDE, NO COMPLAINTS AT THIS TIME. WILL ENDORSE TO ONCOMING NURSE. CALL LIGHT IN REACH AT THIS TIME.
--- NOTE | 2018-12-15 19:35 | NUR ---
PT RECEIVED A/O X4, NIGERIEN SPEAKING WITH LIMITED LITHUANIAN, ABLE TO MAKE NEEDS KNOWN. DAUGHTER AT BEDSIDE. MED-SURG, DENIES ANY CP/PRESSURE. PULSES PALPABLE, NO EDEMA PRESENT. BREATHING IS EVEN AND UNLABORED, NO RESP DISTRESS NOTED. ABD SOFT AND NONDISTENDED DENIES N/V. COLOSTOMY BAG IN PLACE WITH LARGE, RED STOMA NOTED. VOIDS, BRP. MILD GENERALIZED WEAKNESS, AMBULATORY WITH STEADY GAIT. SKIN IS WARM AND DRY, INTACT. PT DENIES HAVING ANY PAIN AT THIS TIME. SL TO RFA, PATENT AND INTACT, SITE WNL. NO ACUTE DISTRESS NOTED. BED IN LOWEST SETTING, SIDE RAILS UP X2, CALL LIGHT WITHIN REACH. WILL CONT TO MONITOR.
[2018-12-15 20:46] VITALS: BP 99/53
--- NOTE | 2018-12-16 01:26 | NUR ---
PT RESTING IN BED WITH EYES CLOSED, BUT IS EASILY AROUSABLE. BREATHING IS EVEN AND UNLABORED, NO RESP DISTRESS OR S/S OF PAIN OBSERVED. NO ACUTE DISTRESS NOTED. CALL LIGHT WITHIN REACH. WILL CONT TO MONITOR.
[2018-12-16 06:06] VITALS: BP 114/65
--- NOTE | 2018-12-16 06:22 | NUR ---
PT SLEPT WELL THROUGHOUT THE EVENING. BREATHING IS EVEN AND UNLABORED, NO RESP DISTRESS NOTED. PT DENIES HAVING ANY PAIN AT THIS TIME. COLOSTOMY BAG IN PLACE WITH SCANT OUTPUT NOTED. NO ACUTE CHANGES ENCOUNTERED DURING SHIFT. ALL NEEDS MET AND ANTICIPATED. CALL LIGHT WITHIN REACH. WILL ENDORSE CARE TO AM NURSE.
--- NOTE | 2018-12-16 07:28 | NUR ---
RECEIVED REPORT FROM SAIMA PERSAUD. PATIENT RESTING COMFORTABLY IN BED. IV TO RFA IS PATENT AND INTACT. NO REDNESS OR PAIN. PT ON ROOM AIR. NO C/O SOB AND NO DISTRESS NOTED. COLOSTOMY TO NOTED TO RLQ WITH NO LEAKING NOTED. ALL QUESTIONS AND CONCERNS ADDRESSED.
--- NOTE | 2018-12-16 07:30 | NUR ---
PT IN NO ACUTE DISTRESS. CONTINUITY OF CARE ENDORSED TO HARMONY RN. ALL QUESTIONS AND CONCERNS ADDRESSED.
[2018-12-16 08:32] VITALS: BP 121/62
--- NOTE | 2018-12-16 10:27 | NUR ---
DR AKHTAR IN TO SEE AND ASSESS PATIENT. DISCUSSED DISCHARGE WITH [facility], COLOSTOMY CARE, AND PT. FOLLOW UP OUTPATIENT AT [facility]. ASSESS COLOSTOMY AND OBSTRUCTION CORRECTION. PT AND DAUGHTER VERBALIZED UNDERSTANDING AND ALL QUESTIONS AND CONCERNS WERE ADDRESSED.
--- NOTE | 2018-12-16 10:39 | NUR ---
CERTIFIED HOME HEALTH AIDE NETTA IN TO SEE PATIENT. DISCUSSED DISCHARGE AND HOME HEALTH TODAY. PT TO FOLLOW UP OUTPATIENT. PATIENT AND DAUGHTER VERBALIZED UNDERSTANDING AND ALL QUESTIONS AND CONCERNS WERE ADDRESSED.
[2018-12-16 12:56] VITALS: BP 121/62
[2018-12-16 17:20] VITALS: BP 113/63
--- NOTE | 2018-12-16 19:10 | NUR ---
PATIENT STABLE FOR DISCHARGE PER MD. DISCHARGE INSTRUCTIONS AND SUMMARY DISCUSSED WITH PATIENT AND DAUGHTER. BOTH VERBALIZED UNDERSTANDING AND AGREE TO FOLLOW UP WITH PRIMARY DOCTOR AND ONCOLOGIST. CASE MANAGEMENT TO CALL PATIENT TOMORROW WITH APPOINTMENT DATE AND TIME. INFORMED PATIENT THAT [facility] WILL BE CONTACTING THEM TO SET UP VISIT TIMES. COLOSTOMY CARE DISCUSSED WITH READING INFORMATION GIVEN. COLOSTOMY SUPPLIES GIVEN X 3 DAYS. ALL QUESTIONS AND CONCERNS ADDRESSED. IV REMOVED AND IV POLE CLEARED. ID BANDS CUT. PT ESCORTED TO LOBBY VIA WHEELCHAIR.
== END 2018-12-16 19:12 | disposition home or self-care (01) | DRG 329 ==
LOC: ED 15:01 → MU 19:09
PROVIDERS: Emergency Medicine; Internal Medicine; Surgery; ADMIT Internal Medicine
PROC: 0D1L0Z4 Bypass Transverse Colon to Cutaneous, Open Approach (ICD-10-PCS; principal; 2018-12-03 12:00)
PROC: 0DQL0ZZ Repair Transverse Colon, Open Approach (ICD-10-PCS; 2018-12-10)
DX: C78.5 Secondary malignant neoplasm of large intestine and rectum (principal); E43 Unspecified severe protein-calorie malnutrition; D61.810 Antineoplastic chemotherapy induced pancytopenia; C78.02 Secondary malignant neoplasm of left lung; R64 Cachexia; C77.2 Secondary and unspecified malignant neoplasm of intra-abdominal lymph nodes; C78.01 Secondary malignant neoplasm of right lung; K56.690 Other partial intestinal obstruction; K94.03 Colostomy malfunction; C79.89 Secondary malignant neoplasm of other specified sites; Y83.3 Surgical operation with formation of external stoma as the cause of abnormal reaction of the patient, or of later complication, without mention of misadventure at the time of the procedure; E87.6 Hypokalemia; E83.42 Hypomagnesemia; Z68.21 Body mass index [BMI] 21.0-21.9, adult; Z85.43 Personal history of malignant neoplasm of ovary
CPT/HCPCS: 83880; 84439; 97116-GP; 97530-GP; A4371; C9113; G0378; J0330; J0690; J0696; J1170; J1885; J2001; J2250; J2270; J2405; J2704; J2710; J3010; J3475; J3480; J3490; J7030; J7040; J7050; J7060; J7120; P9016; P9035; Q0092; Q0163; Q9967

== ENCOUNTER 2019-01-21 11:22 | Emergency (ER) | payer OTHER ==
[~2019-01-21] VITALS: Ht 160 cm; Wt 51.7 kg
[~2019-01-21 11:22] MED LIST: LYNPARZA150 MG PO; NEUPOGEN300 MCG/01 IJ; PROCHLORPERAZIN10 MG PO; ZOFRAN ODT8 MG PO
[2019-01-21 11:25] VITALS: BP 128/60; Ht 160 cm; Wt 51.7 kg
== END 2019-01-21 13:31 | disposition home or self-care (01) ==
LOC: ED 11:22
DX: K94.09 Other complications of colostomy (principal); Z98.890 Other specified postprocedural states; Z85.43 Personal history of malignant neoplasm of ovary; Z13.89 Encounter for screening for other disorder